=== PATIENT | female | born 2005 | race Caucasian/White ===

== ENCOUNTER 2025-04-03 21:49 | Emergency (ER) | payer OTHER, SELFPAY ==
--- OUTSIDE RECORDS SUMMARY | 2025-03-02 12:55 | XMS_ITS | Encounter Summary ---
Author Organization [employer] Address [address], [place] [address] Care Team Providers Care Melter Caster Name Role Phone Unavailable Primary Care Provider Unavailabl e Reason for Visit * Reason Comments EATING DISORDER Encounter Details Date Type Department Care Team (Latest Contact Info) Description 03/02/2025 12:55 PM CDT - 03/02/2025 11:59 PM CDT Hospital Encounter [facility] [address] [place] [address] [id number] Delisa Blandon, PhD, [address] [address] Other specified eating disorder (Primary Dx); Major depressive disorder, recurrent episode, moderate (HRC); NITESH (generalized anxiety disorder) (HRC) Discharge Disposition: Still a Patient Social History Tobacco Use Types Packs/Day Years Used Date Smoking Tobacco: Never Assessed Comments Unknown Sex and Gender Information Value Date Recorded Sex Assigned at Not on file Legal Sex Female 8:44 AM CDT Gender Identity Not on file Sexual Orientation Not on file documented as of this encounter Functional Status documented as of this encounter Progress Notes * Delisa Blandon, PhD, - 03/02/2025 1:00 PM CDT Images from the original note were not included. [facility] Standard Diagnostic Assessment Start Time: 1:00 p.m. End Time: 1:50 p.m. Patient was seen alone. This appointment was conducted via telehealth (video) as it is the patient???s preference and it isappropriate for the treatment being provided. Patient location: other [facility], Clinician location: clinic There are potential benefits and risks of telehealth (video or phone) visits that differ from in-person sessions. Confidentiality still applies for telehealth services. It is important to be in a quiet, private space that is free of distractions (including cell phone or other devices) during the session. In the future, if you need to cancel or change your tele-appointment, you must notify the clinic in advance by phone. In the event of technical problems or safety concerns, let's confirm your current location and the best number to reach you at. We should also agree on a safety plan and we will use the emergency contact on file if we get disconnected and I cannot reach you again. As your provider, I may determine that due to certain circumstances, telehealth no longer appropriate and thatfuture appointments should be in person. Data charges may apply if you are not connected to WiFi. I discussed with the patient/parent that this visit is a telehealth visit that will be billed to their insurance. Reviewed potential benefits, risks and confidentiality of telehealth visits. Confirmed patients' current location and contact information. Developed a safety plan to be used in the event of an emergency or safety concerns. Made contingency plan in the event of technical problems. Explained that the appropriateness of telehealth visits is determined by the provider and that patient may need to be seen in clinic in the future. The scope and limitations of confidentiality were discussed. Patient stated understanding. Assessment Data Date of Initial Assessment: 03-02-25 Initial Assessment Completed By: Delisa Blandon, PH.D., L.P. Location of Initial Assessment: [place] Referral Source: Primary Care Provider, real she saw for sports clearance. Dr. Cheatham from [facility] recommend eating disorder evaluation. Reason for Referral (direct quote from patient): I mentioned I haven't had my period in a while. Estimates having period a couple times a year. She reports really struggling last year with eating. She reports this was her first year at college. 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 She reports making herself throw up at that time. She described it has been a while since that has happened. She reports originally going to [employer] in [place]. Patient has a legal guardian: Subjective Family & Cultural History Patient was born in [place], [place] , raised by parents. She has twin sister who lives in [place]. . Parents are in process of divorce, she stated they are not happy. Current living situation: lives in dorm with two roommates. Described that is going well. She reports trouble sleeping. 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 Level of education: college. Is in biology. Employment (occupation and current work status): denied working. status: Gender Identity/Preferred Pronouns: Her/ She Information about race, ethnicity, gender identity, sexual orientation, national origin, and language includes . Bisexual. Yarsanism and cultural beliefs/practices: .denied. Strengths, hobbies, interests: skiing, likes to draw and paint and play music. History of Presenting Illness Presenting concerns as reported by patient: Duration of these concerns: Estimates struggling with eating for a year and 1/2 or two years. She took a gap year between senior year and college. She lived in a different part of [place] at this time . She was training for skiing and working. She reports being obsessive about training schedule at this time. She described she felt terrible if she missed workouts She reports overdoing it and being really tired. She reports last year she started to limit food intake. She estimated training 8 to 15 hours a week. She reports last year trying to get away with two meals a day. She described skipping lunch or only having saladat this time.. She reports being aware of calories and adding them up and would try to eat lower calorie foods. She reports being worried about gaining weight in college environment and was obsessed with burning more than then she ate. She would eat less if not working out. Estimated weighing around 160 at this time. She described typical day of eating as follows: For breakfast having yogurt bowl and granola. At lunch, having salad with protein or yogurt bowl and soup. For dinner having salad and something else. Was vague about this. May snack on fruits including apples or oranges , bars, crackers. Current Eating Disorder Symptoms Restricting: Food rules: Yes, feels guilty if she eats sugar. Skip meals: Yes, occasionally Eat less overall: Yes, Fasting: Yes, occasionally Count calories: Yes, she is still aware of calories, but not adding it up. Hide, throw away, smear, pick at: Yes, will prefer to eat on her own. Chewing/spitting: No Methodist-driven eating: No Vegan/vegetarian: No, did following vegetarian in the past. Described being squimish around meat. Diets/programs: no Patient reported the following: - - Binge Eating: occasionally.She did report eating uncomfortably full with fruit. This could be a couple apples, cookies in one sitting. She did not indicate frequency. Loss of Control: Yes, Objective Binge Eating: Yes, Subjective Binge Eating: should be further ruled out. Associated Binge Eating Characteristics: eating until uncomfortably full and guilt, shame, or disgust with self after the episode Patient reported the following: - Compensatory Behaviors: Self-Induced Vomitin to 3 X a week in past. Family stress was a trigger at this time. She reports not purging since arriving at school 3 weeks ago. States motivator to eat is to feel good at skiing practice. Diet Pills: No Laxatives: No Diuretics: No Patient reported the following: - - - Exercise: Current activity level: She reports training 6 days a week. She doesn't do extra beyond this. She may modify eating if not feeling she worked out enough. Estimates this occurring 25% of times she eats . Compulsive/compensatory exercise: No Patient reported the following: - ED Cognitions: Spend time outside of meals thinking about food/eating/shape/weight: Yes, 50% of time. Will think about what she is going to eat in next meal.or frustrated with herself based on what she ate. Is this bothersome or problematic (interfere with daily activities or concentration): No Is weight/shape important in influencing feelings about self as a person: Yes, Afraid of gaining weight or becoming fat: Yes, Patient reports the following: - ARFID Behaviors: Eating or feeding disturbance: No - Lack of interest in eating food: Not assessed at this time. - Avoidance bc of sensory concerns: No - Concern about aversive consequences: Yes, afraid of eating undercooked eggs and meat. - Fear of choking/vomiting: No - Patient reports the following: - Persistent Failure to meet appropriate nutritional/energy needs: Yes, - Significant weight loss, faltering growth, or lack of weight gain: uncertain. - Nutritional deficiency: No - Dependence on enteral feeding: No - Marked interference with psychosocial functioning: Yes, Impairment In what ways do these symptoms currently affect your daily life? Unhappy with myself all of the time. History of depression and anxiety, but this is contributing to it. Weight and Menstrual History Self-weighing: denied . Recent weight history: estimates last weight was 163 lbs. Highest - at age Lowest - at age of BMI Readings from Last 1 Encounters: No data found for BMI Menstrual status: history of reduced periods without being on control . History of control . Date of first period: Currently occurring monthly: If not monthly, how often? Currently on hormonal contraception? Mental Health Treatment History Eating disorder treatment: denied. Patient has received the following mental health services: She described gymnastics coach last year tried to help me get services at [facility]. Spoke with [facility] were also followed on by health center.. History of seeing a psychiatrist for many years. Since middle school . Was on lexapro for several years. Most recent med was Trintellix. Denied currently being on meds. History of psychiatric hospitalization: denied. Psychiatric History History of psychiatric diagnoses: NITESH with Depression History of self-injurious behaviors: history of cutting in middle school and early high school. Denied currently. History of safety concerns (SI, SA, etc.): denied. Mood: Pt reports the following concerns: struggles with picturing future and things she is hopeful for and hard time enjoying. May miss class, stay in bed, tearfulness. Depression: acknowledged history of. She did not complete PHQ-9 for intake. Imelda: Denied symptoms Anxiety: Pt reports the following concerns: Anxiety: excessive worrying, problems concentrating. She reported worrying about what other people think of her. She reports parents are .States school is more acaemically rigourous. Worries she is not cut out for academic. Panic: history of . OCD: Denied symptoms Perfectionism: Yes, ADHD, ODD, CD, Impulse Control: ADHD: hasn't been diagnosed Thought process was slow, Is really exhausted. ODD: Denied symptoms Conduct D/O: Denied symptoms Impulse control: Denied symptoms Psychosis: No Trauma: The patient does not have a history of trauma/traumatic experience. The patient does not have a history of physical abuse. The patient does not have a history of sexual abuse. The patient does not have a history of neglect. The patient does not have a history of exploitation or victimization. The patient does not have a current/history of bereavement. PTSD: Denied Symptoms Substance Use: Patient consumes alcoholic drinks per week: denied, CAGE-AID Score: Patient has or is currently using the following substances: dneied. Patient has needed help or tried to quit use of substances: Patient has experienced the following problems because of alcohol or drug use: Outcome Measures No data to display Legal History Patient involvement with the legal system: denied. Social Determinants of Health Important (current) relationships to the patient: far from home. Has some good friends in other parts of country. Sister is across town at [employer]. Quality of these relationships: General life stressors/concerns: Barriers to care: Yes, distance for in person appts. Basic Needs Met: Living Situation Stable: Medical/Physical Health History Primary Care Provider: No primary care provider on file. Patient has had a head injury or seizure: denied. Patient reports the following medical concerns: denied. Special accommodations for in-person visits: Medication History Current/past Psychotropic medications: hx of . Current/past GLP-1 agonists, including semaglutides and tirzepatides (e.g., Ozempic, Wegovy, Zepbound, Mounjaro, Rybelsus, Trulicity, etc.): denied. Current other medications: Current Medications[1] Patient is compliant with taking medications as prescribed: uncertain. Family Psychiatric/Medical History Family members with eating disorder history: No Family members with mental health history: Yes, maternal family history of depression. Father depression and anxiety. Family History[2] Objective MENTAL STATUS EXAM Pt arrived on time. Appearance was casually dressed and appears stated age. Demeanor was pleasant. Participation was engaged in the interview process. Eye contact was good. Speech was increased latency of response and soft. Behavior and activity levels were within normal limits. Mood was dysthymic. Affect appeared consistent with with appropriate smiling. Thought processes were organized and focused on her symptoms and complaints. Thoughts and responses were slow throughout interview. Associations appeared intact and appeared fully oriented to time, place, and person. Insight appeared good . Judgment appeared fair. Impulse control appeared some evidence of impulse control problems, as suggested by binge eating. Intelligence level appeared to be average. Assessment/Plan Clinician Summary Laura is a 19 y.o. , female, who was referred to [facility] for this evaluation by Latia. Laura was seen with [facility]. Today???s interview, review of medical records, and supplemental information provided, support these diagnoses. Eating disorder symptom presentation includes: restriction, binge eating, excessive exercise. . These symptoms are currently impacting self-care/ADLs area(s) of functioning. Contributing medical issues and social determinants of health include medical and health problems cormorbid anxiety and depression.. Risk factors were assessed and no further action needed.Diagnostic impressions and treatment recommendations were discussed. Diagnoses OSFED Major Depressive Disorder, Recurrent, Moderate NITESH Rule-out diagnoses: ADHD The following referrals and recommendations were made: Outpatient Treatment (OP) Treatment options were discussed and the patient is willing to participate in ongoing treatment. Medical consult is recommended in addition to individual therapy and meetings with [facility]. Psychiatric consult was also recommended but patient was unwilling to schedule at this time. Recommended Treatment Modalities: CBT-E Goals of Treatment: Short-term Goals: Decrease eating disorder symptom use Long-term Goals: Increrase effective use of coping strategies Decrease eating diosrder thoughts [1] No current outpatient medications on file as of 03/02/2025. No current facility-administered medications on file as of 03/02/2025. [2] No family history on file. documented in this encounter Plan of Treatment Upcoming Encounters Date Type Department Care Team (Late st Contact Info) Description 04/09/2025 2:00 PM CDT Telemedicine [facility] [address] [place] [address] Augusta Ba, PEDIATRIC DERMATOLOGIST, HABILITATION TRAINING SPECIALIST [facility] [address] [place] [address] 04/10/2025 8:00 AM CDT Telemedicine [facility] [address] [place] [address] Marissa Salas RDN, LD [address] [address] 04/21/2025 8:00 AM GANG DRILL PRESS OPERATOR Telemedicine [facility] [address] [place] [address] Augusta Ba, PEDIATRIC DERMATOLOGIST, [facility] [address] [address] 04/23/2025 3:00 PM GANG DRILL PRESS OPERATOR Appointment [facility] [address] [place] [address] [address] [place] [address] Vinita Heredia MD [address] [facility] [address] [facility] [address] [place], [place] [id number] 04/30/2025 1:00 PM GANG DRILL PRESS OPERATOR Telemedicine [facility] [address] [place] [address] [address] [place], [place] [id number] Augusta Ba, LESLEE, [address] [id number] documented as of this encounter Visit Diagnoses Diagnosis Other specified eating disorder- Primary Major depressive disorder, recurrent episode, moderate (HRC) Major depressive disorder, recurrent episode, moderate NITESH (generalized anxiety disorder) (HRC) Generalized anxiety disorder documented in this encounter
--- OUTSIDE RECORDS SUMMARY | 2025-03-11 13:00 | XMS_ITS | Encounter Summary ---
Author Organization [email or web address] Address [address], [place] [address] Care Team Providers Care Residential Program Worker Name Role Phone Unavailable Primary Care Provider Unavailabl e Reason for Visit * Reason Comments EATING DISORDER Encounter Details Date Type Department Care Team (Late st Contact Info) Description 03/11/2025 1:00 PM CDT Office Visit [facility] 5 [facility], [address] [place] [address] Vinita Heredia MD [address] [facility] [address] [place] [address] Other specified eating disorder (Primary [...] from the original note were not included. [facility] Outpatient Medical Progress Note Date: 03/11/2025 [...] and purging. Laura is attending college at [employer] and does not have her own car. Medical follow up with [place] will be limited by this, does think [...] Info) Description 04/09/2025 2:00 PM CDT Telemedicine [facility] [address] [address] Augusta Ba, DIGITAL ACCOUNT SUPERVISOR, FOOD SAFETY COORDINATOR [address] [address] 04/10/2025 8:00 AM CDT Telemedicine [facility] [address] [address] Marissa Salas, MAGGI[place], LD [address] [address] 04/21/2025 8:00 AM MORGUE ATTENDANT Telemedicine [facility] [address] [address] Augusta Ba MSW, FOOD SAFETY COORDINATOR [address] [address] 04/23/2025 3:00 PM MORGUE ATTENDANT Appointment [facility] [address] [id number] Vinita Heredia MD [address] [facility] [address] [place], [place] [address] 04/30/2025 1:00 PM MORGUE ATTENDANT Telemedicine [facility] [address] [facility], [address] [place] [address] Augusta Ba, DIGITAL ACCOUNT SUPERVISOR, FOOD SAFETY COORDINATOR [address] [facility] [address] [place], [place] [phone] documented as of this encounter Visit Diagnoses Diagnosis Other specified eating disorder- Primary Major depressive disorder, recurrent episode, moderate (HRC) Major depressive disorder, recurrent episode, moderate NITESH (generalized anxiety disorder) (HRC) Generalized anxiety disorder Bradycardia Other specified cardiac dysrhythmias documented in this encounter
--- OUTSIDE RECORDS SUMMARY | 2025-03-31 14:00 | XMS_ITS | Encounter Summary ---
Author Organization [employer] Address [address] [address] Care Team Providers Care Pit Shoveler Name Role Phone Unavailable Primary Care Provider Unavailabl e Reason for Visit * Reason Comments EATING DISORDER Encounter Details Date Type Department Care Team (Late st Contact Info) Description 03/31/2025 2:00 PM CDT Telemedicine [facility] [address] [place] [address] Augusta Ba, LESLEE, CAFETERIA MONITOR [address] [place] [phone] Other specified eating disorder (Primary Dx); Major [...] Info) Description 04/09/2025 2:00 PM CDT Telemedicine [facility] [address] [place] [address] Augusta Ba MSW, CAFETERIA MONITOR [address] [place] [phone] 04/10/2025 8:00 AM CDT Telemedicine [facility] [address] [place] [address] Marissa Salas RDN, LD 2550 [facility] 216 [place] [address] 04/21/2025 8:00 AM PUMPER GAGER Telemedicine [facility] [address] [place] [address] Augusta Ba MSW, DIANA [address] [phone] 04/23/2025 3:00 PM PUMPER GAGER Appointment [facility] [address] [place] [address] Vinita Heredia MD 9600 [facility] [address] [place], [place] [address] 04/30/2025 1:00 PM PUMPER GAGER Telemedicine [facility] [address] [address] Augusta Ba MSW, DIANA [address] [place] [phone] documented as of this encounter Visit Diagnoses [...]
--- OUTSIDE RECORDS SUMMARY | 2025-04-02 14:40 | XMS_ITS | Encounter Summary ---
Author Organization [employer] Address [address], [place] [address] Care Team Providers Care Fusing Machine Tender Name Role Phone Unavailable Primary Care Provider Unavailabl e Reason for Visit * Reason Comments EATING DISORDER Encounter Details Date Type Department Care Team (Late st Contact Info) Description 04/02/2025 2:40 PM CDT Office Visit [facility] 5 [facility], [address] [place] [address] Vinita Heredia MD 96[address] [facility] [address] [place] [address] Other specified eating disorder (Primary [...] Info) Description 04/09/2025 2:00 PM CDT Telemedicine [facility] [address] [facility] [address] [place] [address] Augusta Ba, TRANS ROUTER, PROPOSAL DEVELOPMENT MANAGER [address] [place] [phone] 04/10/2025 8:00 AM CDT Telemedicine [facility] [address] [place], [place] [address] [address] Marissa Salas RDN, LD 2550 [facility] 216 [place] [address] 04/21/2025 8:00 AM SLP TEACHER Telemedicine [facility] [address] [address] Augusta Ba MSW, PROPOSAL DEVELOPMENT MANAGER [address] [place] [phone] 04/23/2025 3:00 PM SLP TEACHER Appointment [facility] [address] [place] [address] [address] [address] Vinita Heredia MD 9600 [facility] [address] [place], [place] [phone] 04/30/2025 1:00 PM SLP TEACHER Telemedicine [facility] [address] [place] [address] [address] [address] Augusta Ba MSW, PROPOSAL DEVELOPMENT MANAGER [address] [place] [phone] documented as of this encounter Visit Diagnoses Diagnosis Other specified eating disorder- Primary Major depressive disorder, recurrent episode, moderate (HRC) Major depressive disorder, recurrent episode, moderate NITESH (generalized anxiety disorder) (HRC) Generalized anxiety disorder Bradycardia Other specified cardiac dysrhythmias documented in this encounter
--- OUTSIDE RECORDS SUMMARY | 2025-04-03 21:51 | XMS_ITS | Encounter Summary ---
Author Organization [facility] Address [address] [place] [address] Care Team Providers Care Kettle Girl Name Role Phone Ofe Weathers PAC Unavailable [phone] Kendal Rogel PMHNP Unavailable [phone] Shyanne Weathersi A PAC Primary Care Provider [phone] Encounter Details Date Type Department Care Team (Late st Contact Info) Description 02/02/2025 Results Follow-Up [facility] Primary Care Family Medicine [address] [facility] [address] [place] [phone] Photovoltaic Testing Technician: Susana Cordero Tracy, APRN, BEACH ATTENDANT-C [address] [place] [phone] SICKLE CELL SCREEN Social History Tobacco Use Types Packs/Day Years Used Date Smoking Tobacco: Never Smokeless Tobacco: Never Comments:no smokers in the h ouse Alcohol Use Standard Drinks/Week Comments No 0 (1 standard drink = 0.6 oz pur e alcohol) PHQ-2 Answer Date Recorded Patient Health Questionnaire-2 Score 6 06/09/2024 Hunger Vital Sign Answer Date Recorded Within the past 12 months, y ou worried that your food would run out before you got the money to buy more. Never true 06/09/20 24 Within the past 12 months, t he food you bought just didn't last and you didn't have money to get more. Never true 06/09/2024 Safety and Environment Answer Date Satish rded Physical Abuse Worry Not on file 01/03/2021 Sexual Abuse Worry Not on file 01/03/2021 Guns In Home No 01/03/2021 Guns Unloaded or Locked Away Not on file Substance Use Types Use/Week Comments No Comments No Sex and Gender Information Value Date Recorded Sex Assigned at Not on file Legal Sex Female 6:43 AM EST Gender Identity Not on file Sexual Orientation Not on file documented as of this encounter Functional Status * Are you deaf or do you have serious difficulty hearing? Answer Date of Assessment Author Status No 02/16/2022 2:34 PM EDT JacquelineCaleb haganin L, RMA Active * Are you blind or do you have serious difficulty seeing, even when wearing glasses? Answer Date of Assessment Author Status No 02/16/2022 2:34 PM EDT JacquelineCaleb haganin L, RMA Active * Do you have serious difficulty walking or climbing stairs? (5 years old or older) Answer Date of Assessment Author Status No 02/16/2022 2:34 PM EDT Jacqueline Melissa L, RMA Active * Do you have difficulty dressing or bathing? (5 years old or older) Answer Date of Assessment Author Status No 02/16/2022 2:34 PM EDT Jacqueline Melissa L, RMA Active * Because of a physical, mental, or emotional condition, do you have difficulty doing errands alone such as visiting a doctor's office or shopping? (15 years old or older) Answer Date of Assessment Author Status No 02/16/2022 2:34 PM EDT Jacqueline Melissa L, RMA Active documented as of this encounter Mental Status * Because of a physical, mental, or emotional condition, do you have serious difficulty concentrating, remembering, or making decisions? (5 years old or older) Answer Entry Date Author Status No 02/16/2022 2:34 PM EDT Jacqueline Melissa L, RMA Active documented in this encounter Plan of Treatment Not on file documented as of this encounter Visit Diagnoses Not on filedocumented in this encounter Additional Health Concerns Assessment Noted Time PHQ-9 Depression Total Score: 20 024 10:04 AM EST documented as of this encounter Care Teams Kettle Girl Relationship Specialty Start Date End Date Ofe Weathers PAC [address] [place] [phone] PCP - General Physician Electrical Tester 03/10/21 Ofe Weathers PAC [address] [place] [phone] Physician Electrical Tester Physician Electrical Tester 09/17/18 Kendal Rogel, [facility] [address] [place] [id number] Consulting Service Psychiatry 10/29/18 documented as of this encounter
--- OUTSIDE RECORDS SUMMARY | 2025-04-03 21:51 | XMS_ITS | Encounter Summary ---
Author Organization [facility] Address [address], [place] [address] Care Team Providers Care Fire Fighting Equipment Specialist Name Role Phone Unavailable Primary Care Provider Unavailabl e Encounter Details Date Type Department Care Team (Late st Contact Info) Description 03/02/2025 Care Coord Documentation L[facility] [address] [place] [id number] Sonya Pereyra MA Social History Tobacco Use Types Packs/Day Years Used Date Smoking Tobacco: Never Assessed Comments Unknown Sex and Gender Information Value Date Recorded Sex Assigned at Not on file Legal Sex Female 8:44 AM CDT Gender Identity Not on file Sexual Orientation Not on file documented as of this encounter Functional Status documented as of this encounter Progress Notes * Sonya Pereyra MA - 03/02/2025 3:57 PM CDT [facility] Initial Assessment Summary Recommended Level of Care: Outpatient (OP) - [facility] and RD, Medical consultation. MDNafisaP recommended however patient would like to hold off on scheduling. *Please call to schedule. Diagnosis: OSFED Growth Charts: None Verbal Disclosure signed: No Outside Care Team: None provided at [place] Insurance Info Insurance Benefit Sheet reviewed for non-coverage form needs? Yes Medicare Insurance: No Secondary Insurance: No Medicare Replacement Insurance: No Secondary Insurance: No Flowsheets Completed: Yes Sonya Pereyra MA * Ashley Munoz - 03/02/2025 3:57 PM CDT Subjective: Patient ID: Lauramariza Corrales is a 19 y.o. female. Chief Complaint: [facility] Post Initial Assessment Outpatient Scheduling Scheduled Providers (Name and Frequency): Vinita Heredia MD 1 visit Augusta diez 1 visit Christiane marie 1 visit Care Team Updated in [facility] (Yes or No): Yes Post [place] Paperwork (Sent via [way info sent] or Need to be Mailed): please mail Review of Systems Objective: Physical Exam Assessment: No diagnosis found. Plan: NA documented in this encounter Plan of Treatment Upcoming Encounters Date Type Department Care Team (Late st Contact Info) Description 04/09/2025 2:00 PM CDT Telemedicine [facility] [address] [place] [address] Augusta Diez MSW, [address] [address] 04/10/2025 8:00 AM CDT Telemedicine [facility] [address] [place] [address] Marissa Salas RDN, LD [address] [facility] [address] [place] [address] 04/21/2025 8:00 AM CIVIL ENGINEERING TEACHER Telemedicine [facility] [address] [facility] [address] [place] [address] Augusta Diez MSW, [address] [address] 04/23/2025 3:00 PM CIVIL ENGINEERING TEACHER Appointment [facility] [address] [address] Vinita Heredia MD [address] [facility] [address] [place] [address] 04/30/2025 1:00 PM CIVIL ENGINEERING TEACHER Telemedicine [facility] [address] [place] [address] Augusta Diez, MAORI LIAISON ADVISER, [facility] [address] [facility] [address] [place], [place] [phone] documented as of this encounter Visit Diagnoses Not on filedocumented in this encounter
--- OUTSIDE RECORDS SUMMARY | 2025-04-03 21:51 | XMS_ITS | Encounter Summary ---
Author Organization [facility] Address [address] [place] [address] Care Team Providers Care Supervisor Fireworks Assembly Name Role Phone Jennie Magallanes DO Unavailable [phone] Michelle Yates DO Primary Care Provider [phone] Provider, Unknown Primary Care Provider Unavaila ble Laura Aparicio MD Primary Care Provider Unavail able Ofe Weathers PAC Unavailable [phone] Kendal Rogel PMHNP Unavailable [phone] Ofe Weathers A PAC Primary Care Provider [phone] Encounter Details Date Type Department Care Team (Late st Contact Info) Description 08/29/2011 Hospital Visit [facility] OUTPATIENT Deepali Randall DO [address] [place] [address] Jennie Magallanes DO [address] [place] [address] Social History Tobacco Use Types Packs/Day Years Used Date Smoking Tobacco: Never Assessed Comments Unknown Sex and Gender Information Value Date Recorded Sex Assigned at Not on file Legal Sex Female 6:43 AM EST Gender Identity Not on file Sexual Orientation Not on file documented as of this encounter Plan of Treatment Not on file documented as of this encounter Procedures Procedure Name Priority Date/Time Associated Diagnosis Comments XR CHEST 1 VW 08/29/2011 11:34 AM EDT documented in this encounter Results * XR CHEST 1 VW (08/29/2011 11:34 AM EDT) Anatomical Region Laterality Modality Chest Computed Radiogr aphy 08/29/2011 11:3 4 AM EDT Narrative 08/29/2011 3:38 PM EDT DATE: 08/29/2011 11:34 ORDERED EXAM: CHEST EXAM: CHEST 08/29/11 INDICATION: pH probe placement. FINDINGS: The lowest of the pH probe electrodes is 9cm above the GE junction. The cardiomediastinal contours are normal and the lungs appear clear. IMPRESSION: The pH probe is in a high position with the lowest of the electrodes 9cm above the GE junction. THIS IS AN ELECTRONICALLY VERIFIED REPORT 08/29/2011 5:29 PM: Everardo Prescott MD end of result us Unknown Provider IMG DIAGNOSTIC IMAGING ORDERABL ES Final Result documented in this encounter Visit Diagnoses Not on filedocumented in this encounter Care Teams Supervisor Fireworks Assembly Relationship Specialty Start Date End Date Jennie Magallanes DO [address] [place] [address] [address] [place] [address] PCP - Hospital (change to care team) 09/01/11 03/09/21 Michelle Yates DO [address] [place] [address] PCP - General 07/15/14 01/09/16 Provider, Unknown PCP - General 01/10/16 09/16/18 Laura Aparicio MD PCP - General Family Medicine 09/17/18 03/09/21 Ofe Weathers PAC [address] [place] [phone] PCP - General Physician Development Engineer 03/10/21 Ofe Weathers, CRUZ [address] [place] [phone] Physician Development Engineer Physician Development Engineer 09/17/18 Kendal Rogel, PMP [address] [place] [phone] Consulting Service Psychiatry 10/29/18 documented as of this encounter
--- OUTSIDE RECORDS SUMMARY | 2025-04-03 21:51 | XMS_ITS | Encounter Summary ---
Author Organization [facility] Address [address] [place], [place] [address] Care Team Providers Care Roof Bolter Operator Name Role Phone Ofe Weathers PAC Unavailable [phone] Kendal Rogel PMHNP Unavailable [phone] Ofe Weathers Primary Care Provider [phone] Encounter Details Date Type Department Care Team (Late st Contact Info) Description 12/22/2024 Results Follow-Up [facility] Primary Care Family Medicine [address] [facility] [address] [place] [address] Lozenge Maker Helper: Susana Cordero Calli A, PAC [address] [place] [address] TSH REFLEX THYROXINE FREE, FERRITIN, IRON + IRON BINDING CAPACITY Social History Tobacco Use Types Packs/Day Years [...] Author Status No 02/16/2022 2:34 PM EDT JacquelineMelissa hagan L, RMA Active * Are you blind or do you have serious difficulty seeing, even when wearing glasses? Answer Date of Assessment Author Status No 02/16/2022 2:34 PM EDT JacquelineCaleb haganin L, RMA Active * Do you have serious difficulty walking or climbing stairs? (5 years old or older) Answer Date of Assessment Author Status No 02/16/2022 2:34 PM EDT Caleb Phillipsin L, RMA Active * Do you have difficulty dressing or bathing? (5 years old or older) Answer Date of Assessment Author Status No 02/16/2022 2:34 PM EDT JacquelineCaleb haganin L, RMA Active * Because of a physical, mental, or emotional condition, do you have difficulty doing errands alone such as visiting a doctor's office or shopping? (15 years old or older) Answer Date of Assessment Author Status No 02/16/2022 2:34 PM EDT JacquelineCalebin L, RMA Active documented as of this encounter Mental Status * Because of a physical, mental, or emotional condition, do you have serious difficulty concentrating, remembering, or making decisions? (5 years old or older) Answer Entry Date Author Status No 02/16/2022 2:34 PM EDT JacquelineCaleb haganin Mickey, RMA Active documented in this encounter Plan of Treatment Not on file documented as of this encounter Visit Diagnoses Not on filedocumented in this encounter Additional Health Concerns Assessment Noted Time PHQ-9 Depression Total Score: 20 024 10:04 AM EST documented as of this encounter Care Teams Roof Bolter Operator Relationship Specialty Start Date End Date Ofe Weathers PAC [address] [place] [address] PCP - General Physician Pipeline Dispatch Operator 03/10/21 Ofe Weathers PAC [address] [place] [address] Physician Pipeline Dispatch Operator Physician Pipeline Dispatch Operator 09/17/18 Kendal Rogel, [facility] [address] [place] [phone] Consulting Service Psychiatry 10/29/18 documented as of this encounter
--- OUTSIDE RECORDS SUMMARY | 2025-04-03 21:51 | XMS_ITS | Clinical Summary ---
Author Organization [facility] Address [address] [place] [address] Care Team Providers Care Airport Duty Manager Name Role Phone Ofe Weathers PAC Unavailable [phone] Kendal Rogel PMHNP Unavailable [phone] Ofe Weathers PAC Primary Care Provider [phone] Allergies Active Allergy Reactions Criticality Noted Date Comments Amoxicillin 07/21/2010 hives Doxycycline 07/23/2014 Hand rash Medications * This document contains information received from the source organization and may not represent a complete record from that organization. Trintellix 20 MG Tab Take 20 mg by mouth daily. 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 I reached out to Viviane Matamoros but, unfortunately, she is about to retire. She also states it is difficult to find a local provider who can do televisits out of state. I will update Laura and ask her to look into her local resources and/or organizations that do telehealth & let me know if she needs a referral. Labs in April were reassuring in ruling out a metabolic factor. I ask her to continue to update us Chest pain, unspecified type 06/15/2024 Assessment & Plan (06/15/2024 9:34 AM EST): EKG, Interpreted by me, shows normal sinus rhythm with no significant findings Low serum vitamin B12 06/15/2024 Overview (06/15/2024): On lab 05/07/2024 Irregular menses 08/25/2021 Assessment & Plan (08/25/2021 4:28 PM EDT): Will stop the OCP's and switch to Depo for now. If this goes well, will consider referral for the implant. She would like to wait to have her first Depo until after her race this weekend, in case she has any bleeding. We will schedule her back in the lab to have this done. Menses painful 01/03/2021 Assessment & Plan (01/03/2021 1:03 PM EDT): She would like to start on OCPs, which is very reasonable. Mom was involved in the conversation and agreeable. We discussed the risks, benefits and directions on how to use. Will follow up in 3 months to see how this is going Low back pain 01/03/2021 Assessment & Plan (10/09/2022 4:22 PM EDT): Recently seen by physiatry, she felt the visit was very informative and helpful. She has not decided to proceed with any of the interventions at this time, which included injection therapy and possible subsequent rhizotomy. She does feel encouraged to know that there are some options for pain management should she wish to pursue this Assessment & Plan (02/19/2022 4:45 PM EDT): Plan for MRI and referral to Neuro Spine given no improvement with PT Assessment & Plan (08/25/2021 4:31 PM EDT): We talked about her back pain. If no significant improvement with the PT, next step would be to pursue an MRI. She will talk this over with her parents and decide if they would like to proceed with this Assessment & Plan (05/11/2021 1:44 PM EST): Will continue with PT for now. If pain is persistent at recheck in 8-12 weeks, would consider MRI at that point given that this has been going on for almost a year Assessment & Plan (01/03/2021 1:04 PM EDT): Is improving with physical therapy. Encouraged her to continue in her HEP Congenital leg length inequality, right 02/06/20 19 Assessment & Plan (02/19/2019 12:17 PM EDT): OMM performed on persistent somatic dysfunctions. Continue heel lift. Recheck in 4-6 weeks or after braces are removed if appointment times are close. Mother agrees. Assessment & Plan (02/05/2019 5:56 PM EDT): Advised implementing 3mm heel lift on the right. OMM was performed on resultant somatic dysfunctions. Will recheck in 2 weeks. Bruxism 02/05/2019 Assessment & Plan (01/03/2021 1:04 PM EDT): Has been noticeable recently with stress, however feels that she is managing it well Assessment & Plan (02/19/2019 12:21 PM EDT): Gave TMJ exercises to be performed daily. Upper trapezius trigger points may be contributing. Discussed potential for trigger point injections vs FDM. I anticipate this will improve once patient can start wearing mouth guard again. Assessment & Plan (02/05/2019 5:56 PM EDT): Discussed importance of stress relief. Ideally patient would be sleeping with mouth guard but cannot right now due to braces. May not need in the future once leg length is compensated for. Demonstrated lateral pterygoid release for patient to perform at home. Other secondary scoliosis, thoracolumbar region 02/05/2019 Assessment & Plan (02/19/2019 12:18 PM EDT): Improved. Leg length inequality is likely culprit. Assessment & Plan (02/05/2019 5:54 PM EDT): Likely secondary to leg length. Chronic nonintractable headache, unspecified hea dache type 01/03/2019 Assessment & Plan (01/03/2019 2:11 PM EDT): Will trial OMT, if appropriate. Encouraged mouth guard as soon as able Sleep difficulties 10/29/2018 Assessment & Plan (01/03/2021 1:02 PM EDT): Encouraged her to work on sleep hygiene-relaxing before bed, avoiding screen time prior to bed, keeping a regular bedtime, getting out of bed and doing something relaxing if not able to fall asleep within 15-30 minutes, trying to keep a regular wake-up time NITESH (generalized anxiety disorder) 06/24/2018 Assessment & Plan (06/15/2024 9:34 AM EST): Continues working with Kendal Rogel Assessment & Plan (01/03/2021 1:03 PM EDT): Has been stable. Continues to see counseling biweekly and Kendal Rogel every several months. Encouraged her to discuss recent stress and anxiety surrounding her injuries with her counselor Assessment & Plan (09/17/2018 9:57 PM EDT): Discussed that she could potentially increase her Lexapro to 20 mg daily, but would prefer that she discuss this with Kendal first. She is encouraged to call sooner than her scheduled appointment if her anxiety and mood do not improved with improved sleep Depression 06/24/2018 Assessment & Plan (11/05/2023 9:05 PM EDT): Has struggled some with mental health over the past year Has made a lot of medication changes and hasn't necessarily found them to be more effective than the Lexapro. Plan to call her manager product and discuss going back on Lexapro. Encouraged her to discuss augmenting the Lexapro with a small dose of an antipsychotic. She agrees and will call her to arrange an appointment to discuss Assessment & Plan (10/09/2022 4:22 PM EDT): Mood overall is okay. Did discuss that perhaps she may want to try a different approach to counseling. I feel that she may be a good candidate for acceptance therapy. She is in and discuss this more with her current counselor and will let me know if she would like a new referral. I also think that getting out of her home next year will be very helpful for her as well. I will leave follow-up open-ended, as she may not be in town when her physical is due next year, however she is encouraged to call and schedule something when she knows she will be home Assessment & Plan (02/19/2022 4:48 PM EDT): Still seeing Kendal and counseling, not sure if it is really helpful. Mood hasn't been great, feels like she is overwhelmed with school and sports. Would like to stop Cross Country, is not enjoying it, feels that it hurts her back and she doesn't have time for it. Encouraged her to have another conversation with her mom about this Assessment & Plan (01/03/2021 1:03 PM EDT): Stable. See above Assessment & Plan (09/17/2018 9:57 PM EDT): Will work on improving sleep. She will discuss med changes with Kendal if appropriate GERD (gastroesophageal reflux disease) 2 Assessment & Plan (07/06/2020 4:21 PM EST): Will start cimetidine as needed to control reflux symptoms Resolved Problems Problem Noted Date Diagnosed Date Resolved Date Tick bite of other part of jennifer ashley, initial encounter 11/05/2023 06/15/2024 Assessment & Plan (11/05/2023 9:03 PM EDT): Has completed prophylactic dose of doxy. At this time, it does not appear to be infected. Advised her to monitor closely, if expanding erythema, swelling, etc should let me know. Monitor for s/s of lyme and other tickborne illnesses for the next 30 days Encouraged daily tick checks Tick bite of abdomen, initial encounter 04/05/2022 10/09/2022 Assessment & Plan (04/05/2022 9:27 PM EDT): Prophylactic doxycycline prescribed. She is still advised to monitor for s/s of tick-borne illness for the next 30 days and for cellulitis in the next several days. Fatigue, unspecified type 08/25/2021 Assessment & Plan (08/25/2021 4:29 PM EDT): Will recheck labs today. I have encouraged her to make an appointment with Kendal to talk about her mood and medications. Encounter for surveillance o f contraceptive pills 05/11/2021 06/15/2024 Assessment & Plan (10/09/2022 4:21 PM EDT): She is doing very well on this control, wishes to continue. Did discuss that she may use some NSAIDs during menstruation, which may help with the nausea that she experiences Assessment & Plan (07/16/2022 9:57 AM EST): Will switch to OCP's. She is familiar with risks, benefits and side-effects. She will call with any concerns. Assessment & Plan (02/19/2022 4:47 PM EDT): She would like to try one more depo injection. If bleeding continues, recommend follow-up with METALLIC YARN SLITTING MACHINE OPERATOR to discuss options. Assessment & Plan (05/11/2021 1:43 PM EST): Referral to [facility] to discuss possible Nexplanon or depo use to avoid menses. Will also ask them to evaluate issues with painful tampon insertion Hair loss 05/11/2021 06/15/2024 Assessment & Plan (05/11/2021 1:44 PM EST): Will check a TSH Right lower quadrant abdominal pain 07/06/2020 01/03/2021 Assessment & Plan (07/06/2020 4:21 PM EST): We will check labs. If WBC is elevated would consider ultrasound to further evaluate for appendicitis. I encouraged her in hydration, a bland healthy diet and ask her to call if new or worsening symptoms, questions or concerns. Right flank pain 07/06/2020 01/03/2021 Assessment & Plan (07/06/2020 4:20 PM EST): Urine today is clear. Flank pain persists we will proceed with an ultrasound to further evaluate the kidney. Sore throat 06/30/2019 07/06/2020 Assessment & Plan (06/30/2019 12:50 PM EST): Recommend salt water gargles. Warm tea, honey. Tylenol/ibuprofen as needed. If worse, not resolving, recommend scheduling follow-up Low back pain 02/05/2019 05/11/2021 Assessment & Plan (02/05/2019 5:55 PM EDT): Secondary to leg length and resultant scoliosis. Medial tibial stress syndrom e, unspecified laterality, initial encounter 01/03/2019 07/06/2020 Assessment & Plan (01/03/2019 2:11 PM EDT): Referral to PT Insomnia 06/24/2018 10/29/2018 Assessment & Plan (09/17/2018 9:56 PM EDT): Discussed sleep hygiene today, handouts provided regarding this. Also encouraged her to start journalling her thoughts prior to bedtime to see if this is helpful Gastritis 06/24/2018 06/15/2024 Abdominal pain, epigastric 07/28/2010 0 07/06/2020 Encounters Date Type Department Care Team Description 02/02/2025 Results Follow-Up [facility] Family Medicine [address] [phone] Cargo Checker: Susana Cordero Tracy, APRN, SLIDER ASSEMBLER-C SICKLE CELL SCREEN 01/30/2025 Travel from Last 3 Months Immunizations Immunization Administration Dates Next Due DTaP Vaccine 05/28/2008, 5,2004,08/09,2004 HPV Vaccine 9-valent Confidential 12/17/2017,05/2016 Hepatitis A Vaccine 0.5 ml 06/27/2010,12/01/2008 Hepatitis B Vaccine 2004,2004,2003 HiB Vaccine 07/18/2005,2004,2004 Influenza Vaccine 05/03/2021,,04/01/2018,04/02 Influenza Vaccine Quadrivale nt 0.5mL IM PF Age 6M+ ([id number]) 06/07/2022,07/23/2019,04/01/2018 MMR Vaccine 05/28/2018,04/12/2005 Meningococcal MCV4P Vaccine 01/03/2021 Meningococcal MPSV4 Vaccine 12/21/2015 Listiki Purple Cap(12+) Covid-19,mrna,lnp-s,pf,0.3ml ([id number]) 06/10/2021,10/21/2020,09/28/2020 Poliovirus Vaccine Inactivated (IPV) ,2004,2004,06/22 Tdap Vaccine (7y+) 0.5 mL IM (Adacel, Boostrix)TDAP VACCINE AGE 7+ 12/21/2015 Varicella Vaccine 12/01/2008,09/09/2007 Family History Medical History Relation Name Comments Diabetes Maternal Grandfather Celiac Disease Neg Hx Crohn Disease Neg Hx ADY Neg Hx Relation Name Status Comments Father Alive Maternal Grandfather Alive Mother Alive Sister Alive Social History Tobacco Use Types Packs/Day Years Used Date Smoking Tobacco: Never Smokeless Tobacco: Never Tobacco Cessation:Counseling Given: Not Answered Comments:no smokers in the house Alcohol Use Standard Drinks/Week Comments No 0 [...] on file Sexual Orientation Not on file Last Filed Vital Signs Vital Sign Reading Time Taken Comments Blood Pressure 120/70 06/09/2024 10:07 AM EST Pulse 80 11/01/2023 1:02 PM EDT Temperature 36.6 C (97.9 F) 11/01/2023 1:02 PM EDT Respiratory Rate 16 07/23/2014 10:05 AM EST Oxygen Saturation 100% 05/18/2022 3:40 PM EST Inhaled Oxygen Concentration 100% 05/18/2022 3 :40 PM EST Weight 74.1 kg (163 lb 7 oz) 06/09/2024 10:07 AM EST Height 182.2 cm (5' 11.75) 06/09/2024 10:07 AM EST Body Mass Index 22.32 06/09/2024 10:07 AM EST Plan of Treatment Health Maintenance Due Date Last Done Comments HIV Screening with Documented Verbal Consent 2019 Chlamydia Screening 01/03/2022 01/03/2021, 9 Hepatitis C Screening 2022 Well Child Visit Annual 02/16/2023 02/17/20 22, 01/03/2021, 01/02/2019 COVID-19 Vaccine ( season) 2025 06/10/2021, 10/21/2020, 09/28/2020 Influenza Vaccine (#1) 2025 , 05/03/2021, 04/14/2020, Additional history exists Depression Screening 06/09/2025 06/09/2024, 02/16/2022, 01/03/2021, Additional history exists Fall Risk Assessment 06/09/2025 06/09/2024, 05/18/20 DTaP/Tdap/Td Vaccine (7 - Td or Tdap) 12/20/2025 12/21/2015, 05/28/2008, 05/28/2008, Additional history exists TDAP/TD Vaccine 18+ 12/20/2025 12/21/2015 Pediatric Cardiac Risk Screening 06/09/2027 06/09/2024 Hepatitis B Vaccines Completed 2004, 2004, 2004, Additional history exists IPV Vaccines Completed 05/28/2008, 08/2004, 2004, Additional history exists Varicella Vaccines Completed 12/01/2008, 09/09/2007 Hepatitis A Vaccines Completed 06/27/2010, 06/27/2010, 12/01/2008, Additional history exists HPV Vaccines Completed 12/17/2017, 12/21/2015 MMR Vaccines Completed 05/28/2018, 05/11, 04/12/2005 Fluoride Varnish Discontinued 10/03/2018 Meningococcal ACWY Vaccine Completed 01/03/2021, Pneumococcal: Peds (0-5y) OR At-Risk Patient (6-49y) Aged Out No longer asim gible based on patient's age to complete this topic Rotavirus Vaccines Aged Out No longer eligible based on patient's age to complete this topic Procedures Procedure Name Priority Date/Time Associated Diagnosis Comments SICKLE CELL SCREEN Routine 01/30/2025 5: 37 PM EDT Encounter for sickle-cell screening from Last 3 Months Results * SICKLE CELL SCREEN (01/30/2025 5:37 PM EDT) Sickle Cell Screen NEGATIVE 01/31/2025 5:[address] [facility] Comment: False negatives may be seen in anemia, infants and following red cell transfusions. Blood VENOUS STRUCTURE / Unknown Venipuncture / Unknown 01/30/2025 5:37 PM EDT 01/30/2025 5:40 PM EDT us Denisha Abdi CAUSTIC STRENGTH INSPECTOR, SLIDER ASSEMBLER-C BLOOD BANK ORDERABLES F inal Result [facility] B[facility] [address] [place] [address] from Last 3 Months Insurance [employer] Care Teams Airport Duty Manager Relationship Specialty Start Date End Date Ofe Weathers, PAC [address] [place] [phone] PCP - General Physician Surveillance Systems Analyst 03/10/21 Ofe Weathers, PAC [address] [place] [phone] Physician Surveillance Systems Analyst Physician Surveillance Systems Analyst 09/17/18 Kendal Rogel, PMHNP [address] [place] [address] [phone] Consulting Service Psychiatry 10/29/18
--- OUTSIDE RECORDS SUMMARY | 2025-04-03 21:51 | XMS_ITS | Encounter Summary ---
Author Organization [facility] Address [address] [place] [address] Care Team Providers Care Cisco Certified Internetwork Expert Name Role Phone Ofe Weathers PAC Unavailable [phone] Kendal Rogel PMHNP Unavailable [phone] Ofe Weathers PAC Primary Care Provider [phone] Encounter Details Date Type Department Care Team (Late st Contact Info) Description 05/06/2024 Orders Only [facility] [address] [place] [id number] Kendal Rogel, PMHNP [address] [place] [address] Social History Tobacco Use Types Packs/Day Years Used Date Smoking Tobacco: Never Smokeless Tobacco: Never Comments:no smokers in the h ouse Alcohol Use Standard Drinks/Week Comments No 0 (1 standard drink = 0.6 oz pur e alcohol) PHQ-2 Answer Date Recorded PHQ-A Severity Score - follow up recommended for a score of 10+ 11 02/16/2022 Hunger Vital Sign Answer Date Recorded Within the past 12 months, y ou worried that your food would run out before you got the money to buy more. Never true 02/17/20 22 Within the past 12 months, t he food you bought just didn't last and you didn't have money to get more. Never true 02/16/2022 Safety and Environment Answer Date Satish rded [...] Status No 02/16/2022 2:34 PM EDT JacquelineMelissa haagn L, RMA Active * Are you blind or do you have serious difficulty seeing, even when wearing glasses? Answer Date of Assessment Author Status No 02/16/2022 2:34 PM EDT JacquelineMelissa hagan L, RMA Active * Do you have [...] on file documented as of this encounter Results * COMPREHENSIVE METABOLIC PANEL (05/07/2024 12:57 PM EST) Sodium 142 135 - 145 mEq/L 05/08/2024 12:58 PM [facility] Potassium 4.5 3.5 - 5.1 mEq/L 05/08/2024 12:58 PM [facility] Chloride 105 96 - 108 mEq/L 05/08/2024 12:58 PM [facility] Carbon Dioxide 24 21 - 30 mEq/L 05/08/2024 12:58 PM [facility] Anion Gap 13 7 - 16 mEq/L 05/08/2024 12:58 PM [facility] Blood Urea Nitrogen 18 6 - 20 mg/dL 05/08/2024 12:58 PM [facility] Creatinine 0.98 0.59 - 1.04 mg/dL 05/08/2024 12:58 PM [facility] BUN Creatinine Ratio 18.4 05/08/2024 12:58 PM [facility] Glucose 74 70 - 99 mg/dL 05/08/2024 12:58 PM [facility] Comment:Per ADA guidelines t hese ranges are for fasting glucose only Protein 7.4 6.4 - 8.3 g/dL 05/08/2024 12:58 PM [facility] Albumin 4.9 3.5 - 5.1 g/dL 05/08/2024 12:58 PM [facility] Globulin 2.5 2.0 - 3.5 g/dL 05/08/2024 12:58 PM [facility] Albumin/Globulin Ratio 2.0 05/08/2024 12:58 PM [facility] Bilirubin 0.3 <=1.2 mg/dL 05/08/2024 12:58 PM [facility] Calcium 9.9 8.6 - 10.0 mg/dL 05/08/2024 12:58 PM [facility] Alkaline Phosphatase 94 35 - 104 U/L 05/08/2024 12:58 PM [facility] AST 22 8 - 43 U/L 05/08/2024 12:58 PM [facility] ALT 14 7 - 45 U/L 05/08/2024 12:58 PM [facility] EGFR (MDRD) >60 >60.0 mL/min/1.7 3m(2) 05/08/2024 12:58 PM EST [facility] Comment:This test has multip le limitations. Please see [email or web address]. Blood VENOUS STRUCTURE / Unknown Venipuncture / Unknown 05/07/2024 12:57 PM EST 05/07/2024 12:59 PM EST Kendal Rogel PMHNP CHEMISTRY ORDERABLES Kylie l Result Performing Organization Address City/[facility]/ZIP Co de Phone Number [facility] [address] [place] [address] * TSH REFLEX THYROXINE FREE (05/07/2024 12:57 PM EST) TSH 0.851 0.270 - 4.200 uIU/mL 05/08/2024 12:58 PM [facility] Blood VENOUS STRUCTURE / Unknown Venipuncture / Unknown 05/07/2024 12:57 PM EST 05/07/2024 12:59 PM EST Kendal Rogel PMHNP CHEMISTRY ORDERABLES Kylie l Result Performing Organization Address City/[facility]/ZIP Co de Phone Number [facility] [address] [place], [place] [id number] * (ABNORMAL) LIPID PANEL (05/07/2024 12:57 PM EST) Cholesterol 188 See comment mg/dL 05/08/2024 12:58 PM [facility] Comment: Fasting and Non-Fasting Desirable: <200 mg/dL Borderline high: 200-239 mg/dL High: > or = 240 mg/dL Triglycerides 104 See comment mg/dL 05/08/2024 12:58 PM [facility] Comment: Flagging of Abnormals is based on fasting value Fasting Normal: <150 mg/dL Borderline high: 150-199 mg/dL High: 200-499 mg/dL Very high: > or = 500 mg/dL Non-Fasting Males: <200 mg/dL Females: <175 mg/dL HDL Cholesterol 55 See comment mg/dL 05/08/2024 12:58 PM [facility] Comment: Fasting and Non-Fasting Males: > or = 40 mg/dL Females: > or = 50 mg/dL LDL Cholesterol Calculation 112(H) 0 - 99 mg/dL 05/08/2024 12:58 PM [facility] Non HDL Cholesterol Calculation 133.0(H) See comment mg/dL 05/08/2024 12:58 PM [facility] Comment: Fasting and Non-Fasting Desirable: <130 mg/dL Above desirable: 130-159 mg/dL Borderline high: 160-189 mg/dL High: 190-219 mg/dL Very high: > or = 220 mg/dL Blood VENOUS STRUCTURE / Unknown Venipuncture / Unknown 05/07/2024 12:57 PM EST 05/07/2024 12:59 PM EST [facility] - 05/08/2024 12:58 PM EST The National Lipid Association and the National Cholesterol Education Program (NCEP) have set the above guidelines for lipids (total cholesterol, triglycerides, HDL cholesterol, LDL cholesterol, and non HDL cholesterol) in adults ages 18 and up. us Kendal Rogel PMHNP CHEMISTRY ORDERABLES Kylie zuñiga Result [facility] [address] [place] [address] * VITAMIN D 25-HYDROXY TOTAL (DEFICIENCY SCREENING ASSAY) (05/07/2024 12:57 PM EST) Vitamin D 25-Hydroxy 31.5 25.0 - 50.0 ng/mL 05/08/2024 12:34 PM [facility] Comment: <13 ng/mL (deficient) 13-24 ng/mL (inadequate) 25-50 ng/mL (sufficient) >50 ng/mL (possibly harmful level - this is a suggested range according to the IOM/CDC 2011 guidelines, please interpret within the clinical context) Blood VENOUS STRUCTURE / Unknown Venipuncture / Unknown 05/07/2024 12:57 PM EST 05/07/2024 12:59 PM EST Kendal Rogel PMHNP CHEMISTRY ORDERABLES Kylie l Result Performing Organization Address City/[facility]/ZIP Co de Phone Number [place] [id number] [place] [address] * (ABNORMAL) VITAMIN B12 + FOLATE LEVELS (05/07/2024 12:57 PM EST) Vitamin B12 Level 214(L) 232 - 1,245 pg/mL 05/08/2024 12:34 PM EST [facility] Folate Level 9.2 4.8 - 20.0 ng/mL 05/08/2024 12:34 PM EST [facility] Blood VENOUS STRUCTURE / Unknown Venipuncture / Unknown 05/07/2024 12:57 PM EST 05/07/2024 12:59 PM EST Result [facility] Kendal Rogel PMHNP CHEMISTRY ORDERABLES Kylie l Result Performing Organization Address City[facility]/ZIP Co de Phone Number [place] [address] [place] [address] * MAGNESIUM (05/07/2024 12:57 PM EST) Pathologist [facility] Magnesium 2.5 1.6 - 2.6 mg/dL 05/08/2024 12:58 PM EST [facility] Blood VENOUS STRUCTURE / Unknown Venipuncture / Unknown 05/07/2024 12:57 PM EST 05/07/2024 12:59 PM EST Kendal Rogel PMHNP CHEMISTRY ORDERABLES Kylie l Result Performing Organization Address City[facility]/ZIP Co de Phone Number [place] [address] [place] [address] * FERRITIN (05/07/2024 12:57 PM EST) Ferritin 92.3 13.0 - 150.0 ng/mL 05/08/2024 12:34 PM EST [facility] Blood VENOUS STRUCTURE / Unknown Venipuncture / Unknown 05/07/2024 12:57 PM EST 05/07/2024 12:59 PM EST Kendal Rogel PMHNP CHEMISTRY ORDERABLES Kylie l Result Performing Organization Address City[facility]/ZIP Co de Phone Number [facility] [address] [place] [address] * HEMOGLOBIN A1C (05/07/2024 12:56 PM EST) Hemoglobin A1C 5.3 4.2 - 5.6 % 05/08/2024 4:47 AM EST [facility] Average Plasma Glucose 105 82 - 117 mg/dL 05/08/2024 4:47 AM EST [facility] Blood VENOUS STRUCTURE / Unknown Venipuncture / Unknown 05/07/2024 12:56 PM EST 05/07/2024 12:59 PM EST Narrative [facility] - 05/08/2024 4:47 AM EST <18 years: Hemoglobin A1c criteria for diagnosing diabetes have not been established for patients who are <18 years of age. > or =18 years: Increased risk for diabetes (prediabetes): 5.7-6.4% Diabetes: > or =6.5% Falsely low percent A1c may be seen with abnormal hemoglobin variants or shortened erythrocyte survival (such as hemolysis, blood loss and ). Kendal Rogel PMHNP CHEMISTRY ORDERABLES Kylie l Result Performing Organization Address City[facility]/ZIP Co de Phone Number [facility] [address] [place] [address] * VITAMIN B2 LEVEL (05/07/2024 12:56 PM EST) Vitamin B2 Level 8.4 6.2 - 39.0 nmol/L 05/18/2024 7:36 PM EST [facility] Comment: Vitamin supplementation within 24 hours prior to blood draw may affect the accuracy of results. This test was developed and its analytical performance characteristics have been determined by [facility] [place], [place]. It has not been cleared or approved by the FDA. This assay has been validated pursuant to the CLIA regulations and is used for clinical purposes. Test Performed at: [facility] [address] [facility] [place] [address] Dale Lopez MD, PhD Blood VENOUS STRUCTURE / Unknown Venipuncture / Unknown 05/07/2024 12:56 PM EST 05/07/2024 12:59 PM EST us Kendal Rogel PMHNP CHEMISTRY ORDERABLES Kylie l Result [facility] [address] * PHOSPHORUS (05/07/2024 12:56 PM EST) [facility] Phosphorus 3.0 2.5 - 4.5 mg/dL 05/08/2024 11:50 AM EST [facility] Blood VENOUS STRUCTURE / Unknown Venipuncture / Unknown 05/07/2024 12:56 PM EST 05/07/2024 12:59 PM EST us Kendal Rogel PMHNP CHEMISTRY ORDERABLES Kylie l Result Performing Organization Address City[facility]/ZIP Co de Phone Number [facility] [address] [place] [address] documented in this encounter Visit Diagnoses Diagnosis Anorexia nervosa, binge eating/purging type- Primary Anorexia nervosa documented in this encounter Additional Health Concerns Assessment Noted Time A fall risk assessment has been complete d for the patient 05/18/2022 3:41 PM EST documented as of this encounter Care Teams [employer] Certified Internetwork Expert Relationship Specialty Start Date End Date Ofe Weathers PAC [address] [place] [phone] PCP - General Physician Building Construction Estimator 03/10/21 Ofe Weathers PAC [address] [place] [phone] Physician Building Construction Estimator Physician Building Construction Estimator 09/17/18 Kendal Rogel, PMHNP [address] [place] [address] Consulting Service Psychiatry 10/29/18 documented as of this encounter
--- OUTSIDE RECORDS SUMMARY | 2025-04-03 21:51 | XMS_ITS | Clinical Summary ---
Author Organization [facility] Address [address] [place] [address] Care Team Providers Care Athletic Coach Name Role Phone Liz Puri MD Primary Care Provider Allergies Active Allergy Reactions Criticality Noted Date Comments Amoxicillin Hives,Arthralgia 06/11/2009 Doxycycline Hives 02/16/2025 Medications No known medications Active Problems Problem Noted Date Diagnosed Date Bulimia nervosa 02/16/2025 Personal history of nonsuicidal self-harm 2024 Encounters Date Type Department Care Team Description 03/10/2025 2:15 PM CDT Orders Only [facility] [address] [place] [address] Lab, [facility] 03/10/2025 Travel 02/16/2025 7:25 AM CDT Office Visit [facility] [address] [place] [address] Liz Puri MD Sports Physical; Allergies (Amoxicillin ) 02/16/2025 Travel from Last 3 Months Social History Tobacco Use Types Packs/Day Years Used Date Smoking Tobacco: Never Smokeless Tobacco: Never Tobacco Cessation:Counseling Given: Not Answered Social Connections Answer Date Recorded Do you often feel lonely or isolated from those around you? 0 02/16/2025 Alcohol Use Answer Date Recorded How often do you have a drink containing alcohol ? 0 02/16/2025 Average Number of Drinks Not on file 025 Frequency of Binge Drinking Not on file 01/2025 Financial Resource Strain Answer Date R ecorded Difficulty of Paying Living Expenses 3 02/16/2025 Difficulty of Paying Living Expenses Not on file 02/16/2025 Food Insecurity Answer Date Recorded Do you worry your food will run out before you are able to buy more? 1 02/16/2025 Transportation Needs Answer Date Record ed Does lack of transportation keep you from medica l appointments? 1 02/16/2025 Does lack of transportation keep you from work, meetings or getting things that you need? 1 02/16/2025 Housing Stability Answer Date Recorded What is your housing situation today? 1 02/16/2025 Utilities Answer Date Recorded Do you have trouble paying f or utilities (for example, heat, electricity, water, phone)? 1 02/16/2025 Comments No Sex and Gender Information Value Date Recorded Sex Assigned at Not on file Legal Sex Female 9:46 AM CDT Gender Identity Not on file Sexual Orientation Not on file Obstetrics History Last Filed Vital Signs Vital Sign Reading Time Taken Comments Blood Pressure 102/68 02/16/2025 7:43 AM CDT Pulse 65 02/16/2025 7:43 AM CDT Temperature 36.5 C (97.7 F) 02/16/2025 7:43 AM CDT Respiratory Rate - - Oxygen Saturation 100% 02/16/2025 7:43 AM CDT Inhaled Oxygen Concentration - - Weight 75.5 kg (166 lb 8 oz) 02/16/2025 7:43 AM CDT Height 182.9 cm (6') 02/16/2025 7:43 AM CDT Body Mass Index 22.58 02/16/2025 7:43 AM CDT Plan of Treatment Health Maintenance Due Date Last Done Comments Tetanus booster 2015 Depression screening for age 12+ 2016 HIV for age 15-65 2019 HPV series for age 9-45 (1 - 3-dose series) 2019 Chlamydia for age 16-24 2020 Hepatitis C screening for ag e 18-79 2022 Hepatitis B series for 19+ ( 1 of 3 - 19+ 3-dose series) 2023 Influenza Vaccine (#1) 2025 BMI (ht and wt on same day) for age 18+ 02/16/2026 02/16/2025 Well Child Check for age 3-20 02/16/2026 02/16/2025 RSV vaccine for adults or (1 - 1-dose 75+ series) 2079 Meningococcal series for age 11-21 Aged Out No longer eligible based on patient's age to complete this topic Pneumococcal series for age 6-49 Aged Out No longer eligible based on patient's age to complete this topic Procedures Procedure Name Priority Date/Time Associated Diagnosis Comments PHOSPHORUS Add On 03/10/2025 2:22 PM CDT Bulimia nervosa, unspecified severity (HC) CBC WITH AUTO DIFFERENTIAL Routine 03/10/2025 2:22 PM CDT Bulimia nervosa, unspecified severity (HC) CBC WITH AUTO DIFFERENTIAL Routine 03/10/2025 2:22 PM CDT Bulimia nervosa, unspecified severity (HC) COMP METABOLIC PANEL Routine 03/10/2025 2:22 PM CDT Bulimia nervosa, unspecified severity (HC) from Last 3 Months Results * (ABNORMAL) CBC WITH AUTO DIFFERENTIAL (03/10/2025 2:22 PM CDT) Pathologist [facility] WHITE BLOOD CELL COUNT 7.7 3.8 - 10.8 Thousand/ uL 03/11/2025 3:49 AM CDT [facility] RED BLOOD CELL COUNT 5.03 3.80 - 5.10 Million/u L 03/11/2025 3:49 AM CDT [facility] HEMOGLOBIN 13.2 11.7 - 15.5 g/dL 03/11/2025 3:49 AM CDT [facility] HEMATOCRIT 43.4 35.0 - 45.0 % 03/11/2025 3:49 AM CDT [facility] MCV 86.3 80.0 - 100.0 fL 03/11/2025 3:49 AM CDT [facility] MCH 26.2(L) 27.0 - 33.0 pg 03/11/2025 3:49 AM CDT [facility] MCHC 30.4(L) 32.0 - 36.0 g/dL 03/11/2025 3:49 AM CDT [facility] Comment: For adults, a slight decrease in the calculated MCHC value (in the range of 30 to 32 g/dL) is most likely not clinically significant; however, it should be interpreted with caution in correlation with other red cell parameters and the patient's clinical condition. RDW 13.7 11.0 - 15.0 % 03/11/2025 3:49 AM CDT [facility] PLATELET COUNT 205 140 - 400 Thousand/ uL 03/11/2025 3:49 AM CDT [facility] MPV 10.3 7.5 - 12.5 fL 03/11/2025 3:49 AM CDT [facility] NEUTROPHILS 67.5 % 03/11/2025 3:49 AM CDT [facility] LYMPHOCYTES 22.7 % 03/11/2025 3:49 AM CDT [facility] MONOCYTES 8.1 % 03/11/2025 3:49 AM CDT [facility] EOSINOPHILS 1.0 % 03/11/2025 3:49 AM CDT [facility] BASOPHILS 0.7 % 03/11/2025 3:49 AM CDT [facility] ABSOLUTE NEUTROPHILS 5198 1500 - 7800 cells/uL 03/11/2025 3:49 AM CDT [facility] ABSOLUTE LYMPHOCYTES 1748 850 - 3900 cells/uL 03/11/2025 3:49 AM CDT [facility] ABSOLUTE MONOCYTES 624 200 - 950 cells/uL 03/11/2025 3:49 AM CDT [facility] ABSOLUTE EOSINOPHILS 77 15 - 500 cells/uL 03/11/2025 3:49 AM CDT [facility] ABSOLUTE BASOPHILS 54 0 - 200 cells/uL 03/11/2025 3:49 AM CDT [facility] Blood BLOOD SPECIMEN / Unknown [facility] / Unknown 03/10/2025 2:22 PM CDT 03/10/2025 2:22 PM CDT Liz Puri MD HEMATOLOGY Final R esult [facility] [place] [address] [place] [address], * PHOSPHORUS (03/10/2025 2:22 PM CDT) [facility] PHOSPHATE ( PHOSPHORUS) 4.1 2.7 - 5.0 mg/dL 03/13/2025 1:23 AM CDT [facility] Blood BLOOD SPECIMEN / Unknown [facility] / Unknown 03/10/2025 2:22 PM CDT 03/10/2025 2:22 PM CDT Liz Puri MD CHEMISTRY Final R esult [facility] [address] [place] [address], * COMP METABOLIC PANEL (03/10/2025 2:22 PM CDT) SODIUM 140 135 - 146 mmol/L 03/11/2025 4:21 AM CDT [facility] POTASSIUM 4.4 3.5 - 5.3 mmol/L 03/11/2025 4:21 AM CDT [facility] CHLORIDE 104 98 - 110 mmol/L 03/11/2025 4:21 AM CDT [facility] CARBON DIOXIDE 29 20 - 32 mmol/L 03/11/2025 4:21 AM CDT [facility] GLUCOSE 94 65 - 99 mg/dL 03/11/2025 4:21 AM CDT [facility] Comment: Fasting reference interval CALCIUM 10.0 8.6 - 10.2 mg/dL 03/11/2025 4:21 AM CDT [facility] CREATININE 0.87 0.50 - 0.96 mg/dL 03/11/2025 4:21 AM CDT [facility] BUN/CREATININE RATIO SEE NOTE: 6 22 (calc) 03/11/2025 4:21 AM CDT [facility] Comment: Not Reported: BUN and Creatinine are within reference range. EGFR 98 > OR = 60 mL/min/1. 73m2 03/11/2025 4:21 AM CDT [facility] ALBUMIN 4.9 3.6 - 5.1 g/dL 03/11/2025 4:21 AM CDT [facility] PROTEIN, TOTAL 7.8 6.1 - 8.1 g/dL 03/11/2025 4:21 AM CDT [facility] BILIRUBIN, TOTAL 0.3 0.2 - 1.2 mg/dL 03/11/2025 4:21 AM CDT [facility] ALKALINE PHOSPHATASE 71 31 - 125 U/L 03/11/2025 4:21 AM CDT [facility] ALT 13 6 - 29 U/L 03/11/2025 4:21 AM CDT [facility] AST 22 10 - 30 U/L 03/11/2025 4:21 AM CDT [facility] UREA NITROGEN (BUN) 13 7 - 25 mg/dL 03/11/2025 4:21 AM CDT [facility] GLOBULIN 2.9 1.9 - 3.7 g/dL (calc) 03/11/2025 4:21 AM CDT [facility] ALBUMIN/GLOBULI N RATIO 1.7 1.0 - 2.5 (calc) 03/11/2025 4:21 AM CDT [facility] Blood BLOOD SPECIMEN / Unknown [facility] / Unknown 03/10/2025 2:22 PM CDT 03/10/2025 2:22 PM CDT Liz Puri MD CHEMISTRY Final R esult [facility] [address] [address], from Last 3 Months Insurance [employer] Care Teams Athletic Coach Relationship Specialty Start Date End Date Liz Puri MD [address] [place] [address] PCP - General Family Practice 02/16/25
--- OUTSIDE RECORDS SUMMARY | 2025-04-03 21:51 | XMS_ITS | Clinical Summary ---
Author Organization [facility] Address [address], [place] [address] Care Team Providers Care Turkey Farmer Name Role Phone Unavailable Primary Care Provider Unavailabl e Source Comments You are receiving this document as you are listed as the primary care provider,follow-up provider, or the patient has been referred to you for consultation.This is in compliance with the Medicare andMedicaid EHR Incentive Program,which states Providers who transition their patient to another setting of careor provider of care or refers their patient to another provider of care shouldprovide summary care record for each transition of care or referral. [facility] Allergies Active Allergy Reactions Criticality Noted Date Comments Amoxicillin Hives High 06/11/2009 Doxycycline Hives High 02/16/2025 Medications No known medications Active Problems Problem Noted Date Diagnosed Date Bradycardia 03/11/2025 Other specified eating disorder 03/02/2025 Major depressive disorder, recurrent episode, mo derate 03/02/2025 NITESH (generalized anxiety disorder) 03/02/2025 Encounters Date Type Department Care Team Description 04/02/2025 2:40 PM CDT Office Visit [facility] [address] [place] [address] Vinita Heredia MD Other specified eating disorder (Primary Dx); Major depressive disorder, recurrent episode, moderate (HRC); NITESH (generalized anxiety disorder) (HRC); Bradycardia 03/31/2025 2:00 PM CDT Telemedicine [facility] [address] [place] [address] Augusta Ba, CUSHION FORMER, LINE MAINTENANCE TECHNICIAN Other specified eating disorder (Primary Dx); Major depressive disorder, recurrent episode, moderate (HRC); NITESH (generalized anxiety disorder) (HRC) 03/11/2025 1:00 PM CDT Office Visit [facility] [address] [place] [address] Vinita Heredia MD Other specified eating disorder (Primary Dx); Major depressive disorder, recurrent episode, moderate (HRC); NITESH (generalized anxiety disorder) (HRC); Bradycardia 03/02/2025 12:55 PM CDT - 03/02/2025 11:59 PM CDT Hospital Encounter [facility] [address] [place] [address] Delisa Blandon, PhD, LP Other specified eating disorder (Primary Dx); Major depressive disorder, recurrent episode, moderate (HRC); NITESH (generalized anxiety disorder) (HRC) Discharge Disposition: Still a Patient 03/02/2025 Care Coord Documentation [facility] [address] [place] [address] Sonya Pereyra MA from Last 3 Months Social History Tobacco [...] Mass Index 22.19 04/02/2025 2:22 PM CDT Plan of Treatment Upcoming Encounters Date Type Department Care Team (Late st Contact Info) Description 04/09/2025 2:00 PM CDT Telemedicine [facility] [address] [place] [address] Augusta Ba, CUSHION FORMER, LINE MAINTENANCE TECHNICIAN [address] [place] [address] 04/10/2025 8:00 AM CDT Telemedicine [facility] [address] [facility] [address] [place] [address] Marissa Salas, RDN, LD [address] [address] 04/21/2025 8:00 AM BELLHOP CAPTAIN Telemedicine [facility] [address] [address] Augusta Ba, CUSHION FORMER, LINE MAINTENANCE TECHNICIAN [address] [phone] 04/23/2025 3:00 PM BELLHOP CAPTAIN Appointment [facility] [address] [address] Vinita Heredia MD [address] [facility] [address] [place], [place] [address] 04/30/2025 1:00 PM BELLHOP CAPTAIN Telemedicine [facility] [address] [address] Augusta Ba, CUSHION FORMER, LINE MAINTENANCE TECHNICIAN [address] [place] [phone] Health Maintenance Due Date Last Done Comments Chlamydia 2004 Hep C Screening (Preventive Services) 2004 MenB Immunization Discussion 2004 HPV Vaccine (1 - 3-dose series) 2019 HIV Screening (Preventive Services) 2020 Adult Preventive Visit 2022 DTaP/Tdap/Td Vaccine (1 - Tdap) 2023 HepB Vaccine (1) 2023 COVID-19 Vaccine (1 - 2023-2 5 season) 2025 Influenza Vaccine (#1) 2025 Zoster/Shingles Vaccine (1 of 2) 2054 HepA Vaccine Aged Out No longer eligi ble based on patient's age to complete this topic Hib Vaccine Aged Out No longer eligi ble based on patient's age to complete this topic IPV (Polio) Vaccine Aged Out No longe r eligible based on patient's age to complete this topic MCV4 Vaccine Aged Out No longer eligi ble based on patient's age to complete this topic Pneumococcal Vaccine Aged Out No long er eligible based on patient's age to complete this topic Insurance [employer]
[2025-04-03 22:26] VITALS: BP 119/77; PULSE 79; RESP 16; TEMP 36.3; O2SAT 98; BMI 48.7
--- NOTE | 2025-04-03 23:42 | ED.NAVMDI ---
HPI - Nausea/Vomiting/Diarrhea General Time Seen by Provider: 23:43 Date Seen: 04/03/25 Chief complaint: Nausea/Vomiting Stated complaint: vomiting Time Seen by Provider: 04/03/25 23:42 Source: patient, RN notes reviewed and old records reviewed Mode of arrival: ambulatory Limitations: no limitations History of Present Illness HPI Narrative: 19-year-old female presents today with nausea, vomiting, diarrhea, generalized abdominal pain. Patient has a history of some abdominal pain related to restrictive eating disorder and trying to increase oral intake, also some history of constipation. Today has had increased pain and then nausea vomits afternoon, little bit of diarrhea also. No blood in the emesis and no blood in the stools. No fevers or chills, no urinary symptoms, denies possibility of . Related Data Home Medications ?Medication ?Instructions ?Recorded ?Confirmed No Known Home Medications 03/05/25 04/03/25 Allergies Allergy/AdvReac Type Severity Reaction Status Date / Time Penicillins Allergy Verified 04/03/25 22:38 PFSH PFSH Social History Smoking Status: Never smoker Do you use any of these nicotine containing products: None How often do you have a drink containing alcohol: monthly or less How many standard drinks containing alcohol do you have on a typical day: 1 or 2 How often do you have six or more drinks on one occasion: Never AUDIT-C Alcohol total score: 1 Non-prescribed substance use: denies use service: No Exam Narrative: Exam Narrative: General: Well-developed and well-nourished, no acute distress Head: Atraumatic and normocephalic Eyes: Pupils are equal reactive, extraocular motions intact, conjunctiva clear ENT: External nose and ears are normal, posterior pharynx without erythema or exudate Neck: No midline cervical tenderness, full spontaneous range of motion the neck, trachea midline, no adenopathy Heart: Regular rate and rhythm no murmurs or thrills Lungs: Clear to auscultation bilaterally without wheezes or crackles Abdomen: Soft, mild diffuse abdominal tenderness with no specific right upper quadrant or right lower quadrant tenderness, nondistended with active bowel sounds Musculoskeletal: No tenderness, deformity, or edema Neurologic: Awake, alert, and oriented x3, no gross focal neurologic deficits, cranial nerves intact as tested Psych: Mood and affect are appropriate Skin: No rashes Const: Vital Signs, click to edit/add: Vital Signs - 24 hr 04/03/25 22:26 Temperature 97.3 F L Pulse Rate [Pulse Oximeter] 79 Respiratory Rate 16 Blood Pressure [Ri ght Upper Arm] 119/77 Pulse Oximetry 98 Course Course ED Course: Reviewed most recent urgent care visit from February 2025 when patient is complaining of about 10 days of right-sided abdominal pain. CBC normal at that time. Also reviewed eating disorder clinic visit from April 02 which was routine follow-up for unspecified eating disorder, anxiety. Patient presents today with generalized abdominal pain, nausea, vomiting, and some diarrhea starting today. On exam, vital is stable, appears comfortable, mild diffuse abdominal tenderness. Labs are ordered, suspect gastroenteritis, food borne illness possible but less likely. Will evaluate for electrolyte disturbance, IV fluids and Zofran are given as well as Pepcid. Reevaluation(s) Time of Reevaluation #1: 01:11 Reevaluation #1: Labs independently interpreted by me with reassuring basic panel, slightly elevated AST of 36 per remaining of the hepatic panel is normal. Patient is stable for discharge with outpatient follow-up, Zofran as needed for nausea vomiting. Vital Signs Vital signs: Initial Vital Signs Temperature 97.3 F L 04/03/25 22:26 Temperature Source Temporal Artery Scan 04/03/25 22:26 Pulse Rate 79 04/03/25 22:26 Respiratory Rate 16 04/03/25 22:26 Blood Pressure 119/77 04/03/25 22:26 Blood Pressure Mean 91 04/03/25 22:26 Pulse Oximetry 98 04/03/25 22:26 Vital Signs Temperature 97.3 F L 04/03/25 22:26 Pulse Rate 79 04/03/25 22:26 Respiratory Rate 16 04/03/25 22:26 Blood Pressure 119/77 04/03/25 22:26 Pulse Oximetry 98 04/03/25 22:26 Temperature 97.3 F L 04/03/25 22:26 Pulse Rate 79 04/03/25 22:26 Respiratory Rate 16 04/03/25 22:26 Blood Pressure 119/77 04/03/25 22:26 Pulse Oximetry 98 04/03/25 22:26 Medications Administered Medications: Discontinued Medications Generic Name Dose Route Start Last Admin Trade Name Freq PRN Reason Stop Dose Admin Famotidine 20 mg 04/04/25 00:09 04/04/25 00:40 Famotidine 10 Mg/Ml Inj IVP 04/04/25 00:10 20 mg ONCE ONE Administration Sodium Chloride 1,000 mls @ 1,000 mls/hr 04/04/25 00:15 04/04/25 00:33 0.9 % Sodium Chloride 1000 Ml IV 04/04/25 01:14 1,000 mls/hr .Q1H ZOHRA Administration Ondansetron HCl 4 mg 04/04/25 00:06 04/04/25 00:40 Ondansetron 2 Mg/Ml Inj IVP 04/04/25 00:07 4 mg ONCE ONE Administration MDM - Nausea/Vomiting/Diarrhea Lab Data Labs: Lab Results 04/04/25 Range/Units 00:35 Sodium 137 (135-149) mmol/L Potassium 4.3 (3.6-5.1) mmol/L Chloride 97 (96-114) mmol/L Carbon Dioxide 25 (20-32) mmol/L Anion Gap 15 (7-15) mEq/L BUN 18 (5-24) mg/dL Creatinine 0.8 (0.5-1.5) mg/dL Estimated Creat Clear 129.45 Estimated GFR 108 ml/min Glucose 130 H (60-115) mg/dL Calcium 10.5 (8.4-10.6) mg/dL Magnesium 1.7 (1.5-2.6) mg/dL Total Bilirubin 0.5 (0.1-1.5) mg/dL Direct Bilirubin 0.1 (0.0-0.5) mg/dL AST 36 H (12-35) U/L ALT 23 (4-35) U/L Alkaline Phosphatase 77 (40-150) U/L Total Protein 9.2 H (6.0-8.3) g/dL Albumin 5.3 H (3.3-5.0) g/dL Lipase 43 (23-300) U/L Discharge Plan Discharge Clinical Impression: Nausea vomiting and diarrhea Patient Disposition: Home, Self-Care Condition: Stable Instructions: Acute Nausea and Vomiting (DC) Additional Instructions: Tylenol and ibuprofen as needed for pain Zofran as needed for nausea vomiting Follow-up with primary care in 3-7 days if not better Activity Level: Activity as Tolerated Discharge Diet: Regular Prescriptions: No Action No Known Home Medications Follow Up/Referrals: Provider,Not a Local [Primary Care Provider, Family Practice] Stand Alone Forms: MyHealth Info Instructions
[2025-04-04] MEDS: ONDANSETRON 2 MG/ML inj 4 MG IVP (00:40)
[2025-04-04] MEDS: FAMOTIDINE 10 MG/ML inj 20 MG IVP (00:40)
[2025-04-04 00:49] LABS: Albumin* 5.3 g/dL (3.3-5.0)
[2025-04-04 00:50] LABS: Chloride* 97 mmol/L (96-114); Potassium* 4.3 mmol/L (3.6-5.1); Sodium* 137 mmol/L (135-149)
[2025-04-04 00:52] LABS: Alanine Aminotransferase* 23 U/L (4-35); Anion Gap 15 mEq/L (7-15); Aspartate Amino Transferase* 36 U/L (12-35); Blood Urea Nitrogen* 18 mg/dL (5-24); Carbon Dioxide* 25 mmol/L (20-32); Creatinine* 0.8 mg/dL (0.5-1.5); Est. Creatinine Clearance* 129.45; Estimated Glomerular Filt Rate 108 ml/min; Total Protein* 9.2 g/dL (6.0-8.3)
[2025-04-04 00:53] LABS: Alkaline Phosphatase* 77 U/L (40-150); Bilirubin Direct* 0.1 mg/dL (0.0-0.5); Bilirubin Total* 0.5 mg/dL (0.1-1.5); Calcium* 10.5 mg/dL (8.4-10.6); Glucose* 130 mg/dL (60-115)
== END 2025-04-04 01:32 | disposition home or self-care (01) ==
PROVIDERS: Emergency Provider Family Medicine; Visit Provider Family Medicine
DX: R11.2 Nausea with vomiting, unspecified (principal); R19.7 Diarrhea, unspecified
CPT/HCPCS: 36415; 80048; 80076; 83690; 83735; 96361; 96374; 96375; 99284; J1308; J2405; J7030

== ENCOUNTER 2025-04-04 16:33 | Observation (INO) | payer OTHER, SELFPAY ==
--- OUTSIDE RECORDS SUMMARY | 2025-03-02 12:55 | XMS_ITS | Encounter Summary ---
Author Organization [employer] Address [address], [place] [address] Care Team Providers Care Sales Representative Livestock Name Role Phone Unavailable Primary Care Provider Unavailabl e Reason for Visit * Reason Comments EATING DISORDER Encounter Details Date Type Department Care Team (Latest Contact Info) Description 03/02/2025 12:55 PM CDT - 03/02/2025 11:59 PM CDT Hospital Encounter [facility] [address] [place] [address] [phone] Delisa Blandon, PhD, [address] [address] Other specified eating disorder (Primary Dx); Major [...] from the original note were not included. [facility] Standard Diagnostic Assessment Start Time: 1:00 p.m. End Time: 1:50 p.m. Patient was seen alone. This appointment was conducted via telehealth (video) as it is the patient???s preference and it isappropriate for the treatment being provided. Patient location: other [facility], Clinician location: clinic There are potential benefits [...] Blandon, PH.D., L.P. Location of Initial Assessment: [place] Referral Source: Primary Care Provider, real she saw for sports clearance. Dr. Cheatham from [facility] recommend eating disorder evaluation. Reason for Referral [...] has happened. She reports originally going to [employer] in [place]. Patient has a legal guardian: Subjective Family & Cultural History Patient was born in [place], [place] , raised by parents. She has twin sister who lives in [place]. . Parents are in process of divorce, she stated they are not happy. Current living situation: lives in dorm with two roommates. Described that is going well. She reports trouble sleeping. 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 Level of education: college. Is in biology. Employment (occupation and current work status): denied working. status: Gender Identity/Preferred Pronouns: Her/ She Information about race, ethnicity, gender identity, sexual orientation, national origin, and language includes . Bisexual. Scientologist and cultural beliefs/practices: .denied. Strengths, hobbies, interests: skiing, likes to draw and paint and play music. History of Presenting Illness Presenting concerns as reported by patient: Duration of these concerns: Estimates struggling with eating for a year and 1/2 or two years. She took a gap year between senior year and college. She lived in a different part of [place] at this time . She was training [...] to eat on her own. Chewing/spitting: No Yarsanism-driven eating: No Vegan/vegetarian: No, did following vegetarian [...] the following mental health services: She described motor coach tour operator last year tried to help me get services at [facility]. Spoke with [facility] were also [...] of country. Sister is across town at [employer]. Quality of these relationships: General life stressors/concerns: [...] y.o. , female, who was referred to [facility] for this evaluation by Latia. Laura [...] Info) Description 04/09/2025 2:00 PM CDT Telemedicine [facility] [address] [place] [address] Augusta Ba, LIBRARY MEDIA TECHNICIAN, LAB PACK CHEMIST [facility] [address] [place] [address] 04/10/2025 8:00 AM CDT Telemedicine [facility] [address] [place] [address] Marissa Salas RDN, LD [address] [address] 04/21/2025 8:00 AM FAMILY SUPPORT WORKER Telemedicine [facility] [address] [place] [address] Augusta Ba, LIBRARY MEDIA TECHNICIAN, [facility] [address] [address] 04/23/2025 3:00 PM FAMILY SUPPORT WORKER Appointment [facility] [address] [place] [address] [address] [place] [address] Vinita Heredia MD [address] [facility] [address] [facility] [address] [place], [place] [id number] 04/30/2025 1:00 PM FAMILY SUPPORT WORKER Telemedicine [facility] [address] [place] [address] [address] [place], [place] [phone] Augusta Ba, LESLEE, [address] [id number] documented as of this encounter Visit Diagnoses Diagnosis Other specified eating disorder- Primary Major depressive disorder, recurrent episode, moderate (HRC) Major depressive disorder, recurrent episode, moderate NITESH (generalized anxiety disorder) (HRC) Generalized anxiety disorder documented in this encounter
--- OUTSIDE RECORDS SUMMARY | 2025-03-11 13:00 | XMS_ITS | Encounter Summary ---
Author Organization [employer] Address [address], [place] [address] Care Team Providers Care Dopeman Name Role Phone Unavailable Primary Care Provider Unavailabl e Reason for Visit * Reason Comments EATING DISORDER Encounter Details Date Type Department Care Team (Late st Contact Info) Description 03/11/2025 1:00 PM CDT Office Visit [facility] 5 [facility], [address] [place] [address] Vinita Heredia MD [address] [facility] [address] [place] [address] Other specified eating disorder (Primary Dx); Major depressive disorder, recurrent episode, moderate (HRC); NITESH (generalized anxiety disorder) (HRC); Bradycardia Social History Tobacco Use Types Packs/Day Years Used Date Smoking Tobacco: Never Assessed PHQ-2 Answer Date Recorded PHQ-2 Score 5 03/11/2025 Comments No Sex and Gender Information Value Date Recorded Sex Assigned at Not on file Legal Sex Female 8:44 AM CDT Gender Identity Not on file Sexual Orientation Not on file documented as of this encounter Last Filed Vital Signs Vital Sign Reading Time Taken Comments Blood Pressure 107/62 03/11/2025 1:14 PM CDT Pulse 76 03/11/2025 1:14 PM CDT Temperature - - Respiratory Rate - - Oxygen Saturation - - Inhaled Oxygen Concentration - - Weight 73.9 kg (163 lb) 03/11/2025 1:08 PM CDT Height 182.2 cm (5' 11.73) 03/11/2025 1:08 PM C DT Body Mass Index 22.27 03/11/2025 1:08 PM CDT documented in this encounter Progress Notes * Vinita Heredia MD - 03/11/2025 1:00 PM CDT Images from the original note were not included. [facility] Outpatient Medical Progress Note Date: 03/11/2025 Name: Laura Corrales : 2005 Age: 19 y.o. Chief Complaint: Outpatient follow up regarding their eating disorder. HPI: Eating disorder: Chart notes reviewed. Pt had LP [place] 03/02/25 with diagnosis of OSFED. Symptoms primarily include restrictive eating. Has also experienced subjective vs objective binges, purging. Laura notes that she has had some degree of rules around food that preceded frankly disordered eating. For many years she would notice and try to limit added sugar intake. She shares that in high school she would sometimes under-eat but would not be intentional, it would be because she was so busy. Thinks overall she was pretty consistent with growth patterns during that time. In college she has struggled with restrictive eating. She was purging previously, but has not purged in the month that she has been at school. She tries to fill up on lower calorie foods. Feels like she is in a better place with eating disorder symptoms than she has been in the past. Will sometimes try to get by with skipping a meal or have something that is not a whole meal. Feels she is eating a more normal amount of food for her activity level, but feels guilty about it. Has been getting a lot of stomachaches over the last couple of weeks. Went to urgent care and had eval for appendicitis. Does think she is likely constipated, she was really stressed the first couple of weeks of school and was eating little, slowed digestion. Started dulcolax and fiber after urgent care visit but symptoms have not improved. Doesn't have predictable hunger or fullness cues. Can feel full after a couple of bites, or feel ravenous at times. Worries about losing control and purging. Laura is attending college at [employer] and does not have her own car. Medical follow up with [place] will be limited by this, does think she could try to have monthly check ins. Current eating patterns: Getting 3 meals per day typically and 0-3 snacks per day. Does think plate is typically full for a meal. Breakfast yogurt and fruit, lunch and dinner usuallysalad with veggies and chicken or tofu, or soup. Acknowledges that plate is probably 3/4 veggies. Snacks are typically fruit, protein or granola bar, or yogurt cup. Occasionally will get a dessert from dining vega. Will drink coffee (4 cups) and water. Reported LMP as December to PCP. Physical Exam: 03/11/2025 1:08 PM 03/11/2025 1:14 PM Vitals Pulse 53 76 Patient's Position during Vital Signs Supine Standing BP 118/53 107/62 03/11/2025 1:08 PM Height & Weight Weight in lbs 163 lb Weight in kg 73.936 kg Height in cm 182 cm Height in ft / in 5' 11.732 Wt Readings from Last 3 Encounters: 03/11/25 73.9 kg (163 lb) Estimated body mass index is 22.27 kg/m?? as calculated from the following: Height as of this encounter: 1.822 m (5' 11.73). Weight as of this encounter: 73.9 kg (163 lb). No previous contact with both weight and height dataon file. No data to display BMI Readings from Last 1 Encounters: 03/11/25 22.27 kg/m?? GENERAL: no acute distress, cooperative to examination. HEAD/ENT/MOUTH: NCAT MS/EXTREM: normal gait, extremities normal, atraumatic, no cyanosis or edema SKIN: dry, no lesions or rashes NEURO: alert, oriented to situation, moves all extremities, no involuntary movements PSYCH: full range of affect Lab results: Outside labs reviewed. Labs/EKG ordered: no. Problems addressed: 1. Other specified eating disorder 2. Major depressive disorder, recurrent episode, moderate (HRC) 3. NITESH (generalized anxiety disorder) (HRC) 4. Bradycardia Plan: Pt presents with new diagnosis of OSFED, primary symptom of restriction and hx of purging (has abstained from the latter for 1 month). We reviewed initial nutrition goals. Encouraged 3 meals and 3 snacks. Reviewed initial portions. Discussed attempting to eat full portion for meals via plate by plate method. If she is struggling with fullness after only a few bites given unpredictable hunger cues, encouraged waiting 5 minutes and resuming the meal. If still struggling, eat 2 bites beyond fullness for that eating occurrence. At this time, given report of amenorrhea as well as bradycardia with notable orthostatic pulse gap,I recommend pausing exercise until nutrition is more stable. May engage in leisure walks with friends, stretching, gentle yoga. Mood: Encourage consultation with psychiatry. No current pharmacologic therapy. Continue to monitor. Contacted PCP who will add on phos to yesterday's labs. Decision/discussion/plan regarding levels of care/treatment: Continue to work on developing and utilizing healthy coping skills and moving away from the eating disorder. Continue to assess appropriate level of care. Continue to update team and coordinate care as needed. Follow up in 2 weeks, or sooner prn. documented in this encounter Plan of Treatment Upcoming Encounters Date Type Department Care Team (Late st Contact Info) Description 04/09/2025 2:00 PM CDT Telemedicine [facility] [address] [address] Augusta Ba, TECHNICIAN SUPPORT ENGINEER, HOME DEMONSTRATOR [address] [address] 04/10/2025 8:00 AM CDT Telemedicine [facility] [address] [address] Marissa Salas, MAGGIEN, LD [address] [address] 04/21/2025 8:00 AM HAND GLOVE CLEANER Telemedicine [facility] [address] [address] Augusta Ba MSW, HOME DEMONSTRATOR [address] [address] 04/23/2025 3:00 PM HAND GLOVE CLEANER Appointment [facility] [address] [id number] Vinita Heredia MD [address] [facility] [address] [place], [place] [address] 04/30/2025 1:00 PM HAND GLOVE CLEANER Telemedicine [facility] [address] [facility], [address] [place] [address] Augusta Ba, TECHNICIAN SUPPORT ENGINEER, HOME DEMONSTRATOR [address] [facility] [address] [place], [place] [phone] documented as of this encounter Visit Diagnoses Diagnosis Other specified eating disorder- Primary Major depressive disorder, recurrent episode, moderate (HRC) Major depressive disorder, recurrent episode, moderate NITESH (generalized anxiety disorder) (HRC) Generalized anxiety disorder Bradycardia Other specified cardiac dysrhythmias documented in this encounter
--- OUTSIDE RECORDS SUMMARY | 2025-03-31 14:00 | XMS_ITS | Encounter Summary ---
Author Organization [employer] Address [address] [address] Care Team Providers Care Graduate Assistant Athletic Trainer Name Role Phone Unavailable Primary Care Provider Unavailabl e Reason for Visit * Reason Comments EATING DISORDER Encounter Details Date Type Department Care Team (Late st Contact Info) Description 03/31/2025 2:00 PM CDT Telemedicine [facility] [address] [place] [address] Augusta Ba, LESLEE, ELECTRIC WELDER HELPER [address] [place] [phone] Other specified eating disorder (Primary Dx); Major depressive disorder, recurrent episode, moderate (HRC); NITESH (generalized anxiety disorder) (HRC) Social History Tobacco Use Types Packs/Day Years Used Date Smoking Tobacco: Never Assessed PHQ-2 Answer Date Recorded PHQ-2 Score 5 03/31/2025 Comments No Sex and Gender Information Value Date Recorded Sex Assigned at Not on file Legal Sex Female 8:44 AM CDT Gender Identity Not on file Sexual Orientation Not on file documented as of this encounter Functional Status documented as of this encounter Plan of Treatment Upcoming Encounters Date Type Department Care Team (Late st Contact Info) Description 04/09/2025 2:00 PM CDT Telemedicine [facility] [address] [place] [address] Augusta Ba MSW, ELECTRIC WELDER HELPER [address] [place] [phone] 04/10/2025 8:00 AM CDT Telemedicine [facility] [address] [place] [address] Marissa Salas RDN, LD 2550 [facility] [address] [place] [address] 04/21/2025 8:00 AM GOVERNMENT RELATIONS ANALYST Telemedicine [facility] [address] [facility] 200 [place] [address] Augusta Ba MSW, DIANA [address] [phone] 04/23/2025 3:00 PM GOVERNMENT RELATIONS ANALYST Appointment [facility] [address] [facility] 200 [place] [address] Vinita Heredia MD 96[address] [facility] [address] [place], [place] [phone] 04/30/2025 1:00 PM GOVERNMENT RELATIONS ANALYST Telemedicine [facility] [address] [address] Augusta Ba MSW, DIANA [address] [place] [phone] documented as of this encounter Visit Diagnoses Diagnosis Other specified eating disorder- Primary Major depressive disorder, recurrent episode, moderate (HRC) Major depressive disorder, recurrent episode, moderate NITESH (generalized anxiety disorder) (HRC) Generalized anxiety disorder * Assessment/Plan - Augusta Ba MSW, DIANA - 03/31/2025 2:00 PM CDT Suicide Risk Summary Overall Suicide Risk Assessment Level: Low Risk. The risk assessment is based on the patient's current responses to completed screening(s), individual risk and protective factors, current presentation, and clinical history. Plan and actions taken with the patient: Treat psychiatric symptoms, Increase social support documented in this encounter
--- OUTSIDE RECORDS SUMMARY | 2025-04-02 14:40 | XMS_ITS | Encounter Summary ---
Author Organization [employer] Address [address], [place] [address] Care Team Providers Care Lip Of Shank Cutter Name Role Phone Unavailable Primary Care Provider Unavailabl e Reason for Visit * Reason Comments EATING DISORDER Encounter Details Date Type Department Care Team (Late st Contact Info) Description 04/02/2025 2:40 PM CDT Office Visit [facility] 5 [facility], [address] [place] [address] Vinita Heredia MD [address] [facility] [address] [place] [address] Other specified eating disorder (Primary [...] Sign Reading Time Taken Comments Blood Pressure 112/74 04/02/2025 2:24 PM CDT Pulse 70 04/02/2025 2:24 PM CDT Temperature - - Respiratory Rate - - Oxygen Saturation - - Inhaled Oxygen Concentration - - Weight 73.7 kg (162 lb 6.4 oz) 04/02/2025 2:22 P M CDT Height 182.2 cm (5' 11.73) 04/02/2025 2:22 PM C DT Body Mass Index 22.19 04/02/2025 2:22 PM CDT documented in this encounter Plan of Treatment Upcoming Encounters Date Type Department Care Team (Late st Contact Info) Description 04/09/2025 2:00 PM CDT Telemedicine [facility] [address] [facility] [address] [place] [address] Augusta Ba, HORSE AND WAGON DRIVER, LACE WEAVER [address] [place] [address] 04/10/2025 8:00 AM CDT Telemedicine [facility] [address] [place], [place] [address] [address] Marissa Salas RDN, LD 2550 [facility] 216 [place] [address] 04/21/2025 8:00 AM EVENT OPERATIONS MANAGER Telemedicine [facility] [address] [address] Augusta aB MSW, LACE WEAVER [address] [place] [phone] 04/23/2025 3:00 PM EVENT OPERATIONS MANAGER Appointment [facility] [address] [place] [address] [address] [address] Vinita Heredia MD [address] [facility] [address] [place], [place] [phone] 04/30/2025 1:00 PM EVENT OPERATIONS MANAGER Telemedicine [facility] [address] [place] [address] [address] [address] Augusta Ba MSW, LACE WEAVER [address] [place] [phone] documented as of this encounter Visit Diagnoses Diagnosis Other specified eating disorder- Primary Major depressive disorder, recurrent episode, moderate (HRC) Major depressive disorder, recurrent episode, moderate NITESH (generalized anxiety disorder) (HRC) Generalized anxiety disorder Bradycardia Other specified cardiac dysrhythmias documented in this encounter
--- OUTSIDE RECORDS SUMMARY | 2025-04-04 16:36 | XMS_ITS | Clinical Summary ---
Author Organization [facility] Address [address] [place] [address] Care Team Providers Care Service Line Layer Name Role Phone Liz Puri MD Primary Care Provider Allergies Active Allergy Reactions Criticality Noted Date Comments Amoxicillin Hives,Arthralgia 06/11/2009 Doxycycline Hives 02/16/2025 Medications No known medications Active Problems Problem Noted Date Diagnosed Date Bulimia nervosa 02/16/2025 Personal history of nonsuicidal self-harm 2024 Encounters Date Type Department Care Team Description 03/10/2025 2:15 PM CDT Orders Only [facility] [address] [place] [address] Lab, [facility] 03/10/2025 Travel 02/16/2025 7:25 AM CDT Office Visit [facility] [address] [place] [address] Liz Puri MD Sports Physical; Allergies (Amoxicillin [...] AUTO DIFFERENTIAL (03/10/2025 2:22 PM CDT) Pathologist [facility] WHITE BLOOD CELL COUNT 7.7 3.8 - [...] MD HEMATOLOGY Final R esult [facility] [place] [address] [place] [address], * PHOSPHORUS (03/10/2025 2:22 PM CDT) [facility] PHOSPHATE ( PHOSPHORUS) 4.1 2.7 - 5.0 mg/dL 03/13/2025 1:23 AM CDT [facility] Blood BLOOD SPECIMEN / Unknown [facility] / Unknown 03/10/2025 2:22 PM CDT 03/10/2025 2:22 PM CDT Liz Puri MD CHEMISTRY Final R esult [facility] [address] [place] [address], * COMP METABOLIC PANEL (03/10/2025 2:22 PM [...] PM CDT 03/10/2025 2:22 PM CDT Liz Prui MD CHEMISTRY Final R esult [facility] [address] [address], from Last 3 Months Insurance [employer] Care Teams Service Line Layer Relationship Specialty Start Date End Date Liz Puri MD [address] [place] [address] PCP - General Family Practice 02/16/25
--- OUTSIDE RECORDS SUMMARY | 2025-04-04 16:36 | XMS_ITS | Clinical Summary ---
Author Organization [facility] Address [address] [address] Care Team Providers Care Automobile Mechanic Helper Name Role Phone Unavailable Primary Care Provider [...] for each transition of care or referral. [facility] Allergies Active Allergy Reactions Criticality Noted Date Comments Amoxicillin Hives High 06/11/2009 Doxycycline Hives High 02/16/2025 Medications No known medications Active Problems Problem Noted Date Diagnosed Date Bradycardia 03/11/2025 Other specified eating disorder 03/02/2025 Major depressive disorder, recurrent episode, mo derate 03/02/2025 NITESH (generalized anxiety disorder) 03/02/2025 Encounters Date Type Department Care Team Description 04/02/2025 2:40 PM CDT Office Visit [facility] [address] [place] [address] Vinita Heredia MD Other specified eating disorder (Primary Dx); Major depressive disorder, recurrent episode, moderate (HRC); NITESH (generalized anxiety disorder) (HRC); Bradycardia 03/31/2025 2:00 PM CDT Telemedicine [facility] [address] [place] [address] Augusta Ba, ELECTRONIC ENGINEERING DRAFTSPERSON, FILLING HAULER Other specified eating disorder (Primary Dx); Major depressive disorder, recurrent episode, moderate (HRC); NITESH (generalized anxiety disorder) (HRC) 03/11/2025 1:00 PM CDT Office Visit [facility] [address] [place] [address] Vinita Heredia MD Other specified eating disorder (Primary Dx); Major depressive disorder, recurrent episode, moderate (HRC); NITESH (generalized anxiety disorder) (HRC); Bradycardia 03/02/2025 12:55 PM CDT - 03/02/2025 11:59 PM CDT Hospital Encounter [facility] [address] [place] [address] Delisa Blandon, PhD, LP Other specified eating disorder (Primary Dx); Major depressive disorder, recurrent episode, moderate (HRC); NITESH (generalized anxiety disorder) (HRC) Discharge Disposition: Still a Patient 03/02/2025 Care Coord Documentation [facility] [address] [place] [address] Sonya Pereyra MA from Last 3 [...] Info) Description 04/09/2025 2:00 PM CDT Telemedicine [facility] [address] [place] [address] Augusta Ba, ELECTRONIC ENGINEERING DRAFTSPERSON, FILLING HAULER [address] [place] [address] 04/10/2025 8:00 AM CDT Telemedicine [facility] [address] [facility] [address] [place] [address] Marissa Salas, RDN, LD [address] [address] 04/21/2025 8:00 AM MODULAR SET CREW MEMBER Telemedicine [facility] [address] [address] Augusta Ba, ELECTRONIC ENGINEERING DRAFTSPERSON, FILLING HAULER [address] [phone] 04/23/2025 3:00 PM MODULAR SET CREW MEMBER Appointment [facility] [address] [address] Vinita Heredia MD [address] [facility] [address] [place], [place] [address] 04/30/2025 1:00 PM MODULAR SET CREW MEMBER Telemedicine [facility] [address] [address] Augusta Ba, ELECTRONIC ENGINEERING DRAFTSPERSON, FILLING HAULER [address] [place] [phone] Health Maintenance Due Date Last Done Comments [...]
--- OUTSIDE RECORDS SUMMARY | 2025-04-04 16:36 | XMS_ITS | Encounter Summary ---
Author Organization [facility] Address [address] [place] [address] Care Team Providers Care Grain Scooper Name Role Phone Ofe Weathers PAC Unavailable [phone] Kendal Rogel PMHNP Unavailable [phone] Ofe Weathers PAC Primary Care Provider [phone] Encounter Details Date Type Department Care Team (Late st Contact Info) Description 05/06/2024 Orders Only [facility] Lab [address] [place] [id number] Kendal Rogel, PMHNP [address] [place] [address] Social History Tobacco Use Types Packs/Day Years [...] 145 mEq/L 05/08/2024 12:58 PM [facility] Potassium 4.5 3.5 - 5.1 mEq/L 05/08/2024 12:58 PM [facility] Chloride 105 96 - 108 mEq/L 05/08/2024 12:58 PM [facility] Carbon Dioxide 24 21 - 30 mEq/L 05/08/2024 12:58 PM [facility] Anion Gap 13 7 - 16 mEq/L 05/08/2024 12:58 PM [facility] Blood Urea Nitrogen 18 6 - 20 mg/dL 05/08/2024 12:58 PM [facility] Creatinine 0.98 0.59 - 1.04 mg/dL 05/08/2024 12:58 PM [facility] BUN Creatinine Ratio 18.4 05/08/2024 12:58 PM [facility] Glucose 74 70 - 99 mg/dL 05/08/2024 12:58 PM [facility] Comment:Per ADA guidelines t hese ranges are for fasting glucose only Protein 7.4 6.4 - 8.3 g/dL 05/08/2024 12:58 PM [facility] Albumin 4.9 3.5 - 5.1 g/dL 05/08/2024 12:58 PM [facility] Globulin 2.5 2.0 - 3.5 g/dL 05/08/2024 12:58 PM [facility] Albumin/Globulin Ratio 2.0 05/08/2024 12:58 PM [facility] Bilirubin 0.3 <=1.2 mg/dL 05/08/2024 12:58 PM [facility] Calcium 9.9 8.6 - 10.0 mg/dL 05/08/2024 12:58 PM [facility] Alkaline Phosphatase 94 35 - 104 U/L 05/08/2024 12:58 PM [facility] AST 22 8 - 43 U/L 05/08/2024 12:58 PM [facility] ALT 14 7 - 45 U/L 05/08/2024 12:58 PM [facility] EGFR (MDRD) >60 >60.0 mL/min/1.7 3m(2) 05/08/2024 12:58 PM EST [facility] Comment:This test has multip le limitations. Please see [email or web address]. Blood VENOUS STRUCTURE / Unknown Venipuncture / Unknown 05/07/2024 12:57 PM EST 05/07/2024 12:59 PM EST Kendal Rogel PMHNP CHEMISTRY ORDERABLES Kylie l Result Performing Organization Address City/[facility]/ZIP Co de Phone Number [facility] [address] [place] [address] * TSH REFLEX THYROXINE FREE (05/07/2024 12:57 PM EST) TSH 0.851 0.270 - 4.200 uIU/mL 05/08/2024 12:58 PM [facility] Blood VENOUS STRUCTURE / Unknown Venipuncture / Unknown 05/07/2024 12:57 PM EST 05/07/2024 12:59 PM EST Kendal Rogel PMHNP CHEMISTRY ORDERABLES Kylie l Result Performing Organization Address City/[facility]/ZIP Co de Phone Number [facility] [address] [place], [place] [id number] * (ABNORMAL) LIPID PANEL (05/07/2024 12:57 PM EST) Cholesterol 188 See comment mg/dL 05/08/2024 12:58 PM [facility] Comment: Fasting and Non-Fasting Desirable: <200 mg/dL Borderline high: 200-239 mg/dL High: > or = 240 mg/dL Triglycerides 104 See comment mg/dL 05/08/2024 12:58 PM [facility] Comment: Flagging of Abnormals is based on fasting value Fasting Normal: <150 mg/dL Borderline high: 150-199 mg/dL High: 200-499 mg/dL Very high: > or = 500 mg/dL Non-Fasting Males: <200 mg/dL Females: <175 mg/dL HDL Cholesterol 55 See comment mg/dL 05/08/2024 12:58 PM [facility] Comment: Fasting and Non-Fasting Males: > or = 40 mg/dL Females: > or = 50 mg/dL LDL Cholesterol Calculation 112(H) 0 - 99 mg/dL 05/08/2024 12:58 PM [facility] Non HDL Cholesterol Calculation 133.0(H) See comment mg/dL 05/08/2024 12:58 PM [facility] Comment: Fasting and Non-Fasting Desirable: <130 mg/dL Above desirable: 130-159 mg/dL Borderline high: 160-189 mg/dL High: 190-219 mg/dL Very high: > or = 220 mg/dL Blood VENOUS STRUCTURE / Unknown Venipuncture / Unknown 05/07/2024 12:57 PM EST 05/07/2024 12:59 PM EST [facility] - 05/08/2024 12:58 PM EST The National Lipid Association and the National Cholesterol Education Program (NCEP) have set the above guidelines for lipids (total cholesterol, triglycerides, HDL cholesterol, LDL cholesterol, and non HDL cholesterol) in adults ages 18 and up. us Kendal Rogel PMHNP CHEMISTRY ORDERABLES Kylie zuñiga Result [facility] [address] [place] [address] * VITAMIN D 25-HYDROXY TOTAL (DEFICIENCY SCREENING ASSAY) (05/07/2024 12:57 PM EST) Vitamin D 25-Hydroxy 31.5 25.0 - 50.0 ng/mL 05/08/2024 12:34 PM [facility] Comment: <13 ng/mL (deficient) 13-24 ng/mL (inadequate) 25-50 ng/mL (sufficient) >50 ng/mL (possibly harmful level - this is a suggested range according to the IOM/CDC 2011 guidelines, please interpret within the clinical context) Blood VENOUS STRUCTURE / Unknown Venipuncture / Unknown 05/07/2024 12:57 PM EST 05/07/2024 12:59 PM EST Kendal Rogel PMHNP CHEMISTRY ORDERABLES Kylie l Result Performing Organization Address City/[facility]/ZIP Co de Phone Number [place] [address] [place] [address] * (ABNORMAL) VITAMIN B12 + FOLATE LEVELS (05/07/2024 12:57 PM EST) Vitamin B12 Level 214(L) 232 - 1,245 pg/mL 05/08/2024 12:34 PM EST [facility] Folate Level 9.2 4.8 - 20.0 ng/mL 05/08/2024 12:34 PM EST [facility] Blood VENOUS STRUCTURE / Unknown Venipuncture / Unknown 05/07/2024 12:57 PM EST 05/07/2024 12:59 PM EST Result [facility] Kendal Rogel PMHNP CHEMISTRY ORDERABLES Kylie l Result Performing Organization Address City/[facility]/ZIP Co de Phone Number [place] [address] [place] [address] * MAGNESIUM (05/07/2024 12:57 PM EST) Pathologist [facility] Magnesium 2.5 1.6 - 2.6 mg/dL 05/08/2024 12:58 PM EST [facility] Blood VENOUS STRUCTURE / Unknown Venipuncture / Unknown 05/07/2024 12:57 PM EST 05/07/2024 12:59 PM EST Kendal Rogel PMHNP CHEMISTRY ORDERABLES Kylie l Result Performing Organization Address City/[facility]/ZIP Co de Phone Number [place] [address] [place] [address] * FERRITIN (05/07/2024 12:57 PM EST) Ferritin 92.3 13.0 - 150.0 ng/mL 05/08/2024 12:34 PM EST [facility] Blood VENOUS STRUCTURE / Unknown Venipuncture / Unknown 05/07/2024 12:57 PM EST 05/07/2024 12:59 PM EST Kendal Rogel PMHNP CHEMISTRY ORDERABLES Kylie l Result Performing Organization Address City/[facility]/ZIP Co de Phone Number [facility] [address] [place] [address] * HEMOGLOBIN A1C (05/07/2024 12:56 PM EST) Hemoglobin A1C 5.3 4.2 - 5.6 % 05/08/2024 4:47 AM EST [facility] Average Plasma Glucose 105 82 - 117 mg/dL 05/08/2024 4:47 AM EST [facility] Blood VENOUS STRUCTURE / Unknown Venipuncture / Unknown 05/07/2024 12:56 PM EST 05/07/2024 12:59 PM EST Narrative [facility] - 05/08/2024 4:47 AM EST <18 years: [...] ORDERABLES Kylie l Result Performing Organization Address City/[facility]/ZIP Co de Phone Number [facility] [address] [place] [address] * VITAMIN B2 LEVEL (05/07/2024 12:56 PM EST) Vitamin B2 Level 8.4 6.2 - 39.0 nmol/L 05/18/2024 7:36 PM EST [facility] Comment: Vitamin supplementation within 24 hours prior to blood draw may affect the accuracy of results. This test was developed and its analytical performance characteristics have been determined by [facility] [place], [place]. It has not been cleared or approved by the FDA. This assay has been validated pursuant to the CLIA regulations and is used for clinical purposes. Test Performed at: [facility] [address] [facility] [place] [address] Dale Lopez MD, PhD Blood VENOUS STRUCTURE / Unknown Venipuncture / Unknown 05/07/2024 12:56 PM EST 05/07/2024 12:59 PM EST us Kendal Rogel PMHNP CHEMISTRY ORDERABLES Kylie l Result [facility] [address] * PHOSPHORUS (05/07/2024 12:56 PM EST) [facility] Phosphorus 3.0 2.5 - 4.5 mg/dL 05/08/2024 11:50 AM EST [facility] Blood VENOUS STRUCTURE / Unknown Venipuncture / Unknown 05/07/2024 12:56 PM EST 05/07/2024 12:59 PM EST us Kendal Rogel PMHNP CHEMISTRY ORDERABLES Kylie l Result Performing Organization Address City/[facility]/ZIP Co de Phone Number [facility] [address] [place] [address] documented in this encounter Visit Diagnoses Diagnosis Anorexia nervosa, binge eating/purging type- Primary Anorexia nervosa documented in this encounter Additional Health Concerns Assessment Noted Time A fall risk assessment has been complete d for the patient 05/18/2022 3:41 PM EST documented as of this encounter Care Teams Grain Scooper Relationship Specialty Start Date End Date Ofe Weathers PAC [address] [place] [phone] PCP - General Physician Glue Jointer Operator 03/10/21 Ofe Weathers PAC [address] [place] [phone] Physician Glue Jointer Operator Physician Glue Jointer Operator 09/17/18 Kendal Rogel, PMHNP [address] [place] [address] Consulting Service Psychiatry 10/29/18 documented as of this encounter
--- OUTSIDE RECORDS SUMMARY | 2025-04-04 16:36 | XMS_ITS | Encounter Summary ---
Author Organization [facility] Address [address] [place], [place] [address] Care Team Providers Care Sanding Machine Operator Name Role Phone Ofe Weathers PAC Unavailable [phone] Kendal Rogel PMHNP Unavailable [phone] Ofe Weathers Primary Care Provider [phone] Encounter Details Date Type Department Care Team (Late st Contact Info) Description 12/22/2024 Results Follow-Up [facility] Primary Care Family Medicine [address] [facility] [address] [place] [address] Petrophysicist: Susana Cordero Calli A, PAC [address] [place] [address] TSH REFLEX THYROXINE FREE, FERRITIN, [...] documented as of this encounter Care Teams Sanding Machine Operator Relationship Specialty Start Date End Date Ofe Weathers PAC [address] [place] [phone] PCP - General Physician Supervising Fire Marshal 03/10/21 Ofe Weathers PAC [address] [place] [address] Physician Supervising Fire Marshal Physician Supervising Fire Marshal 09/17/18 [facility] [address] [place] [address] Consulting Service Psychiatry 10/29/18 documented as of this encounter
--- OUTSIDE RECORDS SUMMARY | 2025-04-04 16:36 | XMS_ITS | Clinical Summary ---
Author Organization [facility] Address [address] [place] [address] Care Team Providers Care Nurses Assistant Name Role Phone Ofe Weathers PAC Unavailable [phone] Kendal Rogel PMHNP Unavailable [phone] fOe Weathers PAC Primary Care Provider [phone] Allergies Active Allergy Reactions Criticality Noted Date [...] than the Lexapro. Plan to call her grain manager and discuss going back on Lexapro. Encouraged [...] injection. If bleeding continues, recommend follow-up with CANE WEIGHER HELPER to discuss options. Assessment & Plan (05/11/2021 [...] Department Care Team Description 02/02/2025 Results Follow-Up [facility] Primary Care Family Medicine [address] [phone] A&P Mechanic: Susana Cordero Tracy, APRN, [employer] SICKLE CELL SCREEN 01/30/2025 Travel from Last 3 Months Immunizations Immunization Administration Dates Next Due DTaP Vaccine 05/28/2008, 5,2004,08/09,2004 HPV Vaccine 9-valent Confidential 12/17/2017,05/2016 Hepatitis A Vaccine 0.5 ml 06/27/2010,12/01/2008 Hepatitis B Vaccine 2004,2004,2003 HiB Vaccine 07/18/2005,2004,2004 Influenza Vaccine 05/03/2021,,04/01/2018,04/02 Influenza Vaccine Quadrivale nt 0.5mL IM PF Age 6M+ ([id number]) 06/07/2022,07/23/2019,04/01/2018 MMR Vaccine 05/28/2018,04/12/2005 Meningococcal MCV4P Vaccine 01/03/2021 Meningococcal MPSV4 Vaccine 12/21/2015 Reverbeo Purple Cap(12+) Covid-19,mrna,lnp-s,pf,0.3ml ([id number]) 06/10/2021,10/21/2020,09/28/2020 Poliovirus Vaccine Inactivated (IPV) ,2004,2004,06/22 Tdap [...] Cell Screen NEGATIVE 01/31/2025 5:11 PM EDT [facility] BLOOD [facility] Comment: False negatives may be seen in anemia, infants and following red cell transfusions. Blood VENOUS STRUCTURE / Unknown Venipuncture / Unknown 01/30/2025 5:37 PM EDT 01/30/2025 5:40 PM EDT us Denisha Abdi M48/M60 TANK DRIVER, [employer] BLOOD BANK ORDERABLES F inal Result [facility] BLOOD BANK [address] [place] [address] from Last 3 Months Insurance [employer] Care Teams Nurses Assistant Relationship Specialty Start Date End Date Ofe Weathers, PAC [address] [place] [phone] PCP - General Physician Nut Chopper 03/10/21 Ofe Weathers, PAC [address] [place] [phone] Physician Nut Chopper Physician Nut Chopper 09/17/18 Kendal Rogel, PMHNP [address] [place] [address] [phone] Consulting Service Psychiatry 10/29/18
--- OUTSIDE RECORDS SUMMARY | 2025-04-04 16:36 | XMS_ITS | Encounter Summary ---
Author Organization [facility] Address [address] [place] [address] Care Team Providers Care Fitness Worker Name Role Phone Ofe Weathers PAC Unavailable [phone] Kendal Rogel PMHNP Unavailable [phone] Shyanne Weathersi A PAC Primary Care Provider [phone] Encounter Details Date Type Department Care Team (Late st Contact Info) Description 02/02/2025 Results Follow-Up [facility] Primary Care Family Medicine [address] [phone] Fabricator Special Items: Susana Cordero Tracy, APRN, FINANCIAL AID OFFICER-C [address] [place] [phone] SICKLE CELL SCREEN Social History Tobacco Use [...] documented as of this encounter Care Teams Fitness Worker Relationship Specialty Start Date End Date Ofe Weathers PAC [address] [place] [address] PCP - General Physician Machine Deburrer 03/10/21 Ofe Weathers PAC [address] [place] [address] Physician Machine Deburrer Physician Machine Deburrer 09/17/18 Kendal Rogel, [facility] [address] [place] [phone] Consulting Service Psychiatry 10/29/18 documented as of this encounter
--- OUTSIDE RECORDS SUMMARY | 2025-04-04 16:36 | XMS_ITS | Encounter Summary ---
Author Organization [employer] Address [address] [address] Care Team Providers Care Pulmonary Care Nurse Name Role Phone Unavailable Primary Care Provider Unavailabl e Encounter Details Date Type Department Care Team (Late st Contact Info) Description 03/02/2025 Care Coord Documentation [facility] DIS [facility] [address] [place] [phone] Sonya Pereyra MA Social History Tobacco Use [...] Pereyra MA - 03/02/2025 3:57 PM CDT [facility] Initial Assessment Summary Recommended Level of Care: Outpatient (OP) - [facility] and [facility], Medical consultation. MDNafisaP recommended however patient would like to hold off on scheduling. *Please call to schedule. Diagnosis: OSFED Growth Charts: None Verbal Disclosure signed: No Outside Care Team: None provided at [place] Insurance Info Insurance Benefit Sheet reviewed for non-coverage form needs? Yes Medicare Insurance: No Secondary Insurance: No Medicare Replacement Insurance: No Secondary Insurance: No Flowsheets Completed: Yes Sonya Pereyra MA * Ashley Munoz - 03/02/2025 3:57 PM CDT Subjective: Patient ID: Lauramariza Corrales is a 19 y.o. female. Chief Complaint: [facility] Post Initial Assessment Outpatient Scheduling Scheduled Providers (Name and Frequency): Vinita Heredia MD 1 visit Augusta diez 1 visit Christiane marie 1 visit Care Team Updated in [facility] (Yes or No): Yes Post [place] Paperwork (Sent via [way info sent] or Need to be Mailed): please mail Review of Systems Objective: Physical Exam Assessment: No diagnosis found. Plan: NA documented in this encounter Plan of Treatment Upcoming Encounters Date Type Department Care Team (Late st Contact Info) Description 04/09/2025 2:00 PM CDT Telemedicine [facility] [address] [place] [address] Augusta Diez MSW, [address] [address] 04/10/2025 8:00 AM CDT Telemedicine [facility] [address] [place] [address] Marissa Salas RDN, LD [address] [facility] [address] [place] [address] 04/21/2025 8:00 AM SMART ENERGY SPECIALIST Telemedicine [facility] [address] [facility] [address] [place] [address] Augusta Diez MSW, [address] [address] 04/23/2025 3:00 PM SMART ENERGY SPECIALIST Appointment [facility] [address] [address] Vinita Heredia MD [address] [facility] [address] [place] [address] 04/30/2025 1:00 PM SMART ENERGY SPECIALIST Telemedicine [facility] [address] [place] [address] Augusta Diez, INDUSTRIAL REHABILITATION CONSULTANT, [facility] [address] [facility] [address] [place], [place] [phone] documented as of this encounter Visit Diagnoses Not on filedocumented in this encounter
--- OUTSIDE RECORDS SUMMARY | 2025-04-04 16:36 | XMS_ITS | Encounter Summary ---
Author Organization [facility] Address [address] [place] [address] Care Team Providers Care Sheet Rock Installer Name Role Phone Jennie Magallanes DO Unavailable [phone] Michelle Yates DO Primary Care Provider [phone] Provider, Unknown Primary Care Provider Unavaila ble Laura Aparicio MD Primary Care Provider Unavail able Ofe Weathers PAC Unavailable [phone] Kendal Rogel PMHNP Unavailable [phone] Ofe Weathers A PAC Primary Care Provider [phone] Encounter Details Date Type Department Care Team (Late st Contact Info) Description 08/29/2011 Hospital Visit [facility] OUTPATIENT Deepali Randall DO [address] [place] [address] Jennie Magallanes DO [address] [place] [address] Social History Tobacco Use Types Packs/Day Years [...] on filedocumented in this encounter Care Teams Sheet Rock Installer Relationship Specialty Start Date End Date Jennie Magallanes DO [address] [place] [address] [address] [place] [address] PCP - Hospital (change to care team) 09/01/11 03/09/21 Michelle Yates DO [address] [place] [phone] PCP - General 07/15/14 01/09/16 Provider, Unknown PCP - General 01/10/16 09/16/18 Laura Aparicio MD PCP - General Family Medicine 09/17/18 03/09/21 Ofe Weathers PAC [address] [place] [phone] PCP - General Physician Manager Emergency 03/10/21 Ofe Weathers, [facility] [address] [place] [phone] Physician Manager Emergency Physician Manager Emergency 09/17/18 Kendal Rogel, PMP [address] [place] [phone] Consulting Service Psychiatry 10/29/18 documented as of this encounter
[2025-04-04 16:47] VITALS: BP 109/64; PULSE 96; RESP 16; TEMP 37.8; O2SAT 97; BMI 22.0
--- NOTE | 2025-04-04 16:47 | ED.GENADULT ---
HPI - General Adult General Date Seen: 04/04/25 Chief complaint: Nausea/Vomiting Stated complaint: Exhaustion, Vomiting Time Seen by Provider: 04/04/25 16:47 History of Present Illness HPI narrative: 19-year-old female presenting to the ER today with, nausea vomiting, diarrhea Was seen in the ER yesterday evening. Per that note she has a history of some restrictive eating disorder and has recently been trying to increase oral intake. Also has a history of constipation. She had mild diffuse tenderness on exam. She had been in urgent care in February with about 10 days of right-sided abdominal pain. During that visit had a normal CBC. In the ER last night workup showed normal sodium 137, potassium 4.3, chloride 97, bicarb 25, BUN 18, creatinine 0.8, glucose 130, magnesium 1.7, total bilirubin 0.5, AST 36, ALT 23, alk-phos 77, lipase 43. Treated with Zofran, Pepcid, bolus of IV fluids. History is obtained from the patient and from her 2 friends who accompany her. She has been noting some abdominal pain for the past couple of months since the start of the fall when she started at [employer]. It sounds like it has been coming and going. I am not able to get a clear pattern of whether not it is postprandial. Sounds like it is more less generalized but lately has been more on the right side, perhaps if anything more in the right upper quadrant than in the right lower quadrant. Yesterday she started with symptoms of vomiting and had several episodes of nonbilious nonbloody vomiting. Also a small amount of diarrhea. She was seen in the ER last night. She was able to discharge home but today the notes ongoing vomiting. She has been trying hard to stay hydrated and has had about a liter of water to drink. She has also developed frequent episodes of diarrhea, about once every hour with brown watery diarrhea. No bloody or mucousy stools. She does not have a high fever but she does have a low-grade fever. Her abdominal pain is persisting and perhaps a little bit worse today than yesterday. She has no recent travel. No known sick exposures. No known specific suspicious food intake. Superimposed on her GI symptoms she also has significant mental health stress, anxiety, depression. She does endorse anxiety and depression for the past several years, at least since high school. She notes that last year when she went away to her freshman year at college (a [employer]) she had development of a restrictive eating disorder and worsening of her depression and anxiety. She notes that her symptoms got worse because of the stress of being awake collagen also because her parents were and possibly going through a divorce. She moved here to [place] to go to [employer] this year. She chose seen all of because her sister is a college student at [employer] here in town. She feels like being closer to her sister is a helpful thing for her. She sees extra about once a week and her sister supportive. She did enter into treatment through the [facility], in [place], this fall when she moved to [place]. She says that she still struggling with her eating disorder and has not been gaining weight. She endorses a lot of stress in her life. She has a dorm room with 2 other roommates and her other 2 roommates 10 to have a erratic sleeping schedules and off and keep her awake until 3:00 a.m.. This week and is particularly stressful because [facility] actually have 3 gas so there is a total of 6 people sleeping her dorm this weekend. She is able to go to work classes and only missed 1 day of class work. She is getting good grades. However because of her stress and anxiety, she has been still restricting what she eats. 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 She loves to ski and finds it to be therapeutic. It is stressful for her that she can participate in the fall training program. I noticed that her her hands are dry and cracked. When I asked she does admit that she does a lot of hand washing and that is why her hands are dry. It does not sound like she has been diagnosed obsessive-compulsive disorder. She does have depression and is struggling with her mental health. She has no thoughts of suicide or self-harm. She says that she has been thinking about taking a break from school to attend to her eating disorder, possibly with an inpatient stay at [facility]. She says she might do that over the J term break. She also has a lot of anxiety centered around her chronic health problems. Her abdominal pain makes her anxious and she is worried that there is something wrong. Related Data Home Medications ?Medication ?Instructions ?Recorded ?Confirmed No Known Home Medications 03/05/25 04/04/25 Allergies Allergy/AdvReac Type Severity Reaction Status Date / Time Penicillins Allergy Intermediate Hives Verified 04/04/25 17:45 [facility] Social History Smoking Status: Never smoker Do you use any of these nicotine containing products: None How often do you have a drink containing alcohol: monthly or less How many standard drinks containing alcohol do you have on a typical day: 1 or 2 How often do you have six or more drinks on one occasion: Never AUDIT-C Alcohol total score: 1 Non-prescribed substance use: denies use service: No Exam Narrative: Exam Narrative: Constitutional: Appears well-developed and well-nourished. Alert. Conversant, but at times tearful. Her friends are attentively at her side. Non toxic. HENT: Head: Atraumatic. Nose: Nose normal. Mouth/Throat: Oral mucosa is clear and not desiccated or cracked. no trismus. Pharynx normal. Tonsils symmetric. No tonsillar enlargement, erythema, or exudate. Eyes: Conjunctivae normal. EOM normal. Pupils equal, round, and reactive to light. No scleral icterus. Neck: Normal range of motion. Neck supple. No tracheal deviation present. No JVD Cardiovascular: Normal rate, regular rhythm. No gallop. No friction rub. No murmur heard. Symmetric radial artery pulses Pulmonary/Chest: Effort normal. No stridor. No respiratory distress. No wheezes. No rales. No rhonchi . No tenderness. Abdominal: Soft. Bowel sounds normal. No distension. No mass. Right mid and right upper quadrant tenderness. No Galvan sign. No rebound. No guarding. No CVA tenderness. Musculoskeletal: RUE: Normal range of motion. No tenderness. No deformity LUE: Normal range of motion. No tenderness. No deformity RLE: Normal range of motion. No edema. No tenderness. No deformity LLE: Normal range of motion. No edema. No tenderness. No deformity Neurological: Alert and oriented to person, place, and time. Normal strength. CN II-VII intact. No sensory deficit. GCS eye subscore is 4. GCS verbal subscore is 5. GCS motor subscore is 6. Normal coordination Skin: Skin is warm and dry. No rash noted. No pallor. Normal capillary refill. Psychiatric: Initially were flat, poor eye contact. During our conversation she becomes much more open an animated. At times when discussing her life stressor she is quite tearful but is consolable by her friends. Endorses lot of depression, stress, anxiety about her health. Worried about her parents relationship. She is stressed about her course work. She has been seeing a therapist through [facility] and has transitioned to a therapist at [employer]. She is not currently on meds. She is considering going to inpatient eating disorder treatment. She is not suicidal. No hallucinations. Patient and friends confirm no substance abuse. Const: Vital Signs, click to edit/add: Vital Signs - 24 hr 04/04/25 16:47 04/04/25 19:45 Temperature 100.1 F H 99.7 F H Pulse Rate [Pulse Oximeter] 96 98 Respiratory Rate 16 20 Blood Pressure [Ri ght Upper Arm] 109/64 117/73 Pulse Oximetry 97 98 Oxygen Delivery Me thod Room Air Room Air Course Course ED Course: Recheck-patient is brought to the bathroom. Reports 2 more episodes of watery brown diarrhea since arrival. Nausea improved both resting bed but still nauseous when walking around. Reglan ordered in addition to Zofran that she has already received Recheck-patient says nausea is improved after Reglan but now feeling sleepy because of the Benadryl 12.5 mg administered to prevent akathisia. Recheck-has tolerated some sips of potassium. Reevaluation(s) Reevaluation #1: Recheck-still nauseous. Unable to tolerate oral potassium more than about 1 hours. Had another bout of diarrhea. No little bit shivery. Spiking low-grade fever. She still feeling weak. At this point she seems to be failing our attempts to control her nausea and diarrhea. She still too weak to go home. Given the social circumstances, she lives in communal dorm room, she is really not able to care for herself in her home living situation. Discussed with the patient. She agrees that observation in the hospital overnight for IV hydration, potassium repletion and further workup is indicated. Discussed with the patient that, although she has an adult and can make her own medical decisions, it would be appropriate for us to call her parents to notify them of her admission. I offered to speak to her parents myself. She does not want call him right now but will call them in a few minutes. She says she might also call her sister, who is a student at [employer]. Discussed with hospitalist, Lissett Lawton who graciously agrees to admit the patient. Vital Signs Vital signs: Initial Vital Signs Temperature 100.1 F H 04/04/25 16:47 Temperature Source Temporal Artery Scan 04/04/25 16:47 Pulse Rate 96 04/04/25 16:47 Respiratory Rate 16 04/04/25 16:47 Blood Pressure 109/64 04/04/25 16:47 Blood Pressure Mean 79 04/04/25 16:47 Blood Pressure Position Sitting 04/04/25 16:47 Pulse Oximetry 97 04/04/25 16:47 Oxygen Delivery Method Room Air 04/04/25 16:47 Vital Signs Temperature 100.1 F H 04/04/25 16:47 Pulse Rate 96 04/04/25 16:47 Respiratory Rate 16 04/04/25 16:47 Blood Pressure 109/64 04/04/25 16:47 Pulse Oximetry 97 04/04/25 16:47 Oxygen Delivery Method Room Air 04/04/25 16:47 Temperature 99.7 F H 04/04/25 19:45 Pulse Rate 98 04/04/25 19:45 Respiratory Rate 20 04/04/25 19:45 Blood Pressure 117/73 04/04/25 19:45 Pulse Oximetry 98 04/04/25 19:45 Oxygen Delivery Method Room Air 04/04/25 19:45 Medications Administered Medications: Generic Name Dose Route Start Last Admin Trade Name Freq PRN Reason Stop Dose Admin Loperamide HCl 4 mg 04/04/25 17:30 04/04/25 17:56 Loperamide Hcl 2 Mg Capsule PO 4 mg ONCE PRN Administration Discontinued Medications Generic Name Dose Route Start Last Admin Trade Name Freq PRN Reason Stop Dose Admin Sodium Chloride 1,000 mls @ 1,000 mls/hr 04/04/25 17:30 04/04/25 18:58 0.9 % Sodium Chloride 1000 Ml IV 04/04/25 18:29 Infused .Q1H ZOHRA Infusion Diphenhydramine HCl 12.5 mg/ 100.25 mls @ 300.75 mls/hr 04/04/25 18:33 04/04/25 19:24 Sodium Chloride IVPB 04/04/25 18:34 Infused ONCE ONE Infusion Metoclopramide HCl 10 mg 04/04/25 18:33 04/04/25 18:57 Metoclopramide Hcl 5 Mg/Ml Inj IVP 04/04/25 18:34 10 mg ONCE ONE Administration Ondansetron HCl 4 mg 04/04/25 17:30 04/04/25 17:56 Ondansetron 2 Mg/Ml Inj IVP 04/04/25 17:31 4 mg ONCE ONE Administration Potassium Bicarbonate 50 meq 04/04/25 18:22 04/04/25 19:46 Potassium Bicarb 25 Meq Effervescent Tab PO 04/04/25 18:23 Not Given ONCE ONE Medical Decision Making MDM Narrative Medical decision making narrative: 19-year-old complex presentation. She returns to the ER today after having been seen last night She does reports several weeks of abdominal pain beginning during the fall this year at [employer]. This is superimposed on a history of anxiety depression and eating disorder for which she underwent treatment at the [facility] this fall as well. Her chronic abdominal pain has worsened and she developed nausea and diarrhea beginning last night and through the day today. Also has a low-grade fever of 100.1 today. Differential for her abdominal pain is broad. It includes early Appendicitis, Bowel Obstruction, Ulcer, Cholecystitis, Diverticulitis, Pancreatitis, UTI, kidney stone, Enteritis/Colitis, inflammatory bowel disease, ischemia, irritable bowel syndrome, as well as other etiologies. Laboratory testing does not reveal a cause for the patient's pain. Because of recurrent worsening symptoms we did go ahead with CT imaging and it is Imaging is noted to be normal save for nonspecifically dilated loops of bowel with fluid (which can be seen in the setting of gastroenteritis). At this point the precise cause of her chronic abdominal pain is not clear. I suspect that her current symptoms are probably being driven largely by a GI infection, most likely viral but I will order stool C diff and stool bacterial panel as well. Suspect that her vomiting diarrhea or probably infectious in nature. She does not have a high fever, bloody mucousy stool, travel, severe abdominal pain , or other clear risk factors for bacterial enteritis. We did recheck labs and electrolytes and we do see interval development of hypokalemia and mildly worse hyponatremia compared to yesterday. I suspect this is due to GI losses from vomiting and diarrhea. Kidney function normal. LFTs normal. Lipase normal. Blood sugar normal. Hypokalemia present. I ordered oral supplementation here in the ER but she is failing. She is just not able to keep enough fluids down to drink her potassium. Given this will start her on IV potassium chloride. She required admission for potassium repletion and hydration. She also is endorsing some ongoing trouble with anxiety and depression, eating disorder. She is not acutely decompensated from a psychiatric standpoint. I do see that her hands are quite dry and cracked from excessive washing which could suggest OCT is well. At this point she is not suicidal. She is clearly alert and intelligent conversant. She has supportive friends at her side. At this point she does not meet criteria for inpatient mental hospitalization. She has been working with counselors at the [facility] as well as at [facility] and I encouraged her to follow up for counseling. At this point she is not meeting criteria for inpatient mental health admission. She will require medical admission for hydration, electrolyte repletion, further management. Please see hospitalist notes for further details about admission status and further workup. Lab Data Labs: Lab Results 04/04/25 Range/Units 17:35 WBC 5.43 (4.50-11.00) K/uL RBC 5.09 (4.00-5.20) m/uL Hgb 13.5 (12.0-16.0) gm/dL Hct 40.7 (33.0-51.0) % MCV 80 (80-100) fL MCH 27 (26-34) pg MCHC 33 (32-36) gm/dL RDW Coeff of Luzma 13.1 (11.5-15.5) % Plt Count 154 (140-440) K/uL Neut % (Auto) 82.2 H (42.0-72.0) % Lymph % (Auto) 7.4 L (20-44) % [place] % (Auto) 9.8 (0.0-11.0) % Eos % (Auto) 0.2 (0.0-7.0) % Baso % (Auto) 0.2 (0.0-3.0) % Neut # (Auto) 4.50 (1.7-7.0) K/uL Lymph # (Auto) 0.40 L (0.90-2.90) K/uL [place] # (Auto) 0.50 (0.00-0.90) K/UL Eos # (Auto) 0.01 (0.00-0.50) K/uL Baso # (Auto) 0.01 (0.00-0.30) K/uL Abs Immat Gran (auto) 0.01 (0.00-0.30) K/uL Imm/Tot Granulo (auto) 0.2 % Sodium 134 L (135-149) mmol/L Potassium 3.1 L (3.6-5.1) mmol/L Chloride 101 (96-114) mmol/L Carbon Dioxide 21 (20-32) mmol/L Anion Gap 12 (7-15) mEq/L BUN 17 (5-24) mg/dL Creatinine 0.7 (0.5-1.5) mg/dL Estimated Creat Clear 147.94 Estimated GFR 127 ml/min Glucose 103 (60-115) mg/dL Calcium 9.1 (8.4-10.6) mg/dL Magnesium 1.7 (1.5-2.6) mg/dL Total Bilirubin 0.8 (0.1-1.5) mg/dL AST 29 (12-35) U/L ALT 21 (4-35) U/L Alkaline Phosphatase 52 (40-150) U/L Total Protein 6.9 (6.0-8.3) g/dL Albumin 4.2 (3.3-5.0) g/dL Lipase 30 (23-300) U/L Imaging Data CT scan - abdomen: Attestation: I have reviewed the pertinent imaging results. Radiologist's impression: Impression: Mild distention of small and bowel loops throughout the abdomen without transition point. Discharge Plan Discharge Clinical Impression: Nausea vomiting and diarrhea, Dehydration, Acute hypokalemia, Weakness Patient Disposition: Admitted As Observation
--- NOTE | 2025-04-04 17:30 | CRLHL7_ITS ---
For Patients: As a result of the Century Cures Act, medical imaging exams and procedure reports are released immediately into your electronic medical record. You may view this report before your referring provider. If you have questions, please contact your health care provider. Indication: abd pain, vomiting, diarrhea Technique: CT Abdomen/Pelvis W/ 58CC ISOVUE 370 intravenous contrast Please note that all CT scans at this facility use dose modulation, iterative reconstruction, and/or weight-based dosing when appropriate to reduce radiation dose to as low as reasonably achievable. Comparison: None Findings: Lung bases are clear. Normal liver, gallbladder, spleen, pancreas, adrenal glands, kidneys, bladder, uterus and ovaries. Mildly prominent fluid-filled loops of small bowel and large bowel are present throughout the abdomen without transition point or wall thickening. No evidence of appendicitis. No abdominal wall hernia. No free air, free fluid or abscess. Osseous structures are normal for age. Impression: Mild distention of small and bowel loops throughout the abdomen without transition point. Please note that all CT scans at this facility use dose modulation, iterative reconstruction, and/or weight-based dosing when appropriate to reduce radiation dose to as low as reasonably achievable. Dictated by Cruz Mcelroy MD @ 04/04/2025 6:17:24 PM (Electronically Signed)
[2025-04-04 17:49] LABS: Hematocrit* 40.7 % (33.0-51.0); Hemoglobin* 13.5 gm/dL (12.0-16.0); Immature Granulocytes Abs Auto 0.01 K/uL (0.00-0.30); Immature Granulocytes Pct Auto 0.2 %; Lymphocytes Absolute Auto 0.40 K/uL (0.90-2.90); Mean Corpuscular HGB Conc 33 gm/dL (32-36); Mean Corpuscular Hemoglobin 27 pg (26-34); Mean Corpuscular Volume 80 fL (80-100); RDW Coefficient of Variation % 13.1 % (11.5-15.5); Red Blood Count* 5.09 m/uL (4.00-5.20); White Blood Count* 5.43 K/uL (4.50-11.00)
[2025-04-04 17:53] LABS: Slide Review Reflex No
[2025-04-04] MEDS: ONDANSETRON 2 MG/ML inj 4 MG IVP (17:56)
[2025-04-04] MEDS: LOPERAMIDE HCL 2 MG CAPSULE 4 MG PO (17:56)
[2025-04-04 18:00] LABS: Chloride* 101 mmol/L (96-114)
[2025-04-04 18:01] LABS: Albumin* 4.2 g/dL (3.3-5.0); Potassium* 3.1 mmol/L (3.6-5.1); Sodium* 134 mmol/L (135-149)
[2025-04-04 18:04] LABS: Alanine Aminotransferase* 21 U/L (4-35); Alkaline Phosphatase* 52 U/L (40-150); Anion Gap 12 mEq/L (7-15); Aspartate Amino Transferase* 29 U/L (12-35); Bilirubin Total* 0.8 mg/dL (0.1-1.5); Blood Urea Nitrogen* 17 mg/dL (5-24); Calcium* 9.1 mg/dL (8.4-10.6); Carbon Dioxide* 21 mmol/L (20-32); Creatinine* 0.7 mg/dL (0.5-1.5); Est. Creatinine Clearance* 147.94; Estimated Glomerular Filt Rate 127 ml/min; Glucose* 103 mg/dL (60-115); Total Protein* 6.9 g/dL (6.0-8.3)
[2025-04-04] MEDS: diphenhydrAMINE 12.5 MG in 0.9 % SODIUM CHLORIDE 100 ml 100 ML 300.75 MG IVPB (18:56)
[2025-04-04] MEDS: METOCLOPRAMIDE HCL 5 MG/ML INJ 10 MG IVP (18:57)
[2025-04-04 19:45] VITALS: BP 117/73; PULSE 98; RESP 20; TEMP 37.6; O2SAT 98
[2025-04-04] MEDS: ACETAMINOPHEN 500 MG TABLET 1000 MG PO (20:01)
[2025-04-04] MEDS: PANTOPRAZOLE SODIUM 40 MG INJ IVP (20:02)
[2025-04-04] MEDS: POTASSIUM CHLORIDE 10 MEQ/100 ML PIGGYBACK 100 MEQ IVPB ×2 (20:17→21:32)
[2025-04-04 20:34] VITALS: BP 118/66; PULSE 93; RESP 18; TEMP 36.8; O2SAT 100; BMI 22.1
--- NOTE | 2025-04-04 20:47 | PM.IMHP1 ---
Assessment and Plan Assessment and plan (1) Nausea vomiting and diarrhea: Problem comment: -onset approximately 24 hours ago -continue IVF, anti-emetics as needed -GI pathogen panel, C diff pending Status: Acute (2) Acute hypokalemia: Problem comment: -potassium 3.1 -10 mEq IV bumps x4, recheck in a.m. Status: Acute (3) Fever: Problem comment: -mild, temp 100.1? -no leukocytosis -UA ordered, GI panel/C diff pending Status: Acute (4) Abdominal pain: Problem comment: -chronic, acutely worsened -CT without evidence of acute abnormalities Status: Acute Plan Continue IV rehydration, nausea management, potassium replacement. Likely discharge tomorrow. Total Time Spent Total Time Spent: Today I spent 75 minutes seeing the patient, reviewing Expanse and EPIC notes/diagnostics, discussing the care plan with our care time that includes social work, PT/OT, pharmacy, RT, mcfp and documenting my impressions and plan in the medical record. 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 Patient is seen with friend/classmate at bedside. Reports history of generalized abdominal pain on a daily basis, noticeably worsened yesterday morning. Began vomiting last night around 8:00 p.m.. Was seen in this ED shortly before midnight and discharged to home following IV fluid hydration along with Zofran. Has continued to have vomiting and diarrhea so return to the ED. tells me abdominal pain is slightly better now. Last stool was in the ED. described as loose and brown, no blood. Last vomited in the ED. No hematemesis. No fevers this week but was noted to have a temp of 100.1? in the ED. has a generalized headache and mild dizziness today. No chest pain or shortness of breath. No recent cough or cold symptoms. Denies UTI symptoms. No recent travel. No known exposures though is a current college student so the risks are there. No reported outbreaks. No known suspicious foods. No new medications. Nonsmoker, no vaping. Occasional alcohol use. Home is [place], [place]. Review of Systems Narrative: REVIEW OF SYSTEMS: Complete review of systems performed and negative unless otherwise stated in HPI or below. Medical Decision Making Medical Decision Making Code Status: Full code [facility] Medical History (Updated 04/04/25 @ 21:23 by Lissett Lawton PA-C) Eating disorder ?F50.9 - Eating disorder, unspecified (ICD-10) NITESH (generalized anxiety disorder) ?F41.1 - Generalized anxiety disorder (ICD-10) MDD (major depressive disorder) ?F32.9 - Major depressive disorder, single episode, unspecified (ICD-10) Abdominal pain ?R10.9 - Unspecified abdominal pain (ICD-10) Social History Smoking Status: Never smoker Do you use any of these nicotine containing products: None How often do you have a drink containing alcohol: monthly or less How many standard drinks containing alcohol do you have on a typical day: 1 or 2 How often do you have six or more drinks on one occasion: Never AUDIT-C Alcohol total score: 1 Non-prescribed substance use: denies use service: No Meds Home Medications and Allergies Home Medications ?Medication ?Instructions ?Recorded ?Confirmed ?Type No Known Home Medications 03/05/25 04/04/25 History Allergies Allergy/AdvReac Type Severity Reaction Status Date / Time Penicillins Allergy Intermediate Hives Verified 04/04/25 17:45 Exam Narrative: Exam Narrative: PHYSICAL EXAM General: Pleasant, appropriately conversant, appears fatigued otherwise NAD HEENT: Normocephalic, atraumatic, sclera white, EOMI, oral mucosa dry Cardiovascular: RRR, S1S2. No pitting edema Pulmonary: CTA bilaterally without rhonchi, rales, expiratory wheezes. No dyspnea on room air Abdominal: Soft, nondistended, mild generalized tenderness Neurological: Alert, answering questions appropriately, cranial nerves intact, no focal findings Extremities: No gross joint deformity or swelling. AROMI. Neurovascularly intact Skin: Warm, dry, chafing of hands. Const: Vital Signs, click to edit/add: Vital Signs - 24 hr 04/04/25 16:47 04/04/25 19:45 Temperature 100.1 F H 99.7 F H Pulse Rate [Pulse Oximeter] 96 98 Respiratory Rate 16 20 Blood Pressure [Ri ght Upper Arm] 109/64 117/73 Pulse Oximetry 97 98 Oxygen Delivery Me thod Room Air Room Air Hospitalist - H&P: Result Labs Labs: Short CBC 04/04/25 Range/Units 17:35 WBC 5.43 (4.50-11.00) K/uL Hgb 13.5 (12.0-16.0) gm/dL Hct 40.7 (33.0-51.0) % Plt Count 154 (140-440) K/uL BMP 04/04/25 17:35 Sodium 134 L Potassium 3.1 L Chloride 101 Carbon Dioxide 21 BUN 17 Creatinine 0.7 Glucose 103 Calcium 9.1 Liver Function 04/04/25 Range/Units 17:35 Total Bilirubin 0.8 (0.1-1.5) mg/dL AST 29 (12-35) U/L ALT 21 (4-35) U/L Alkaline Phosphatase 52 (40-150) U/L Albumin 4.2 (3.3-5.0) g/dL Imaging CT scan - abdomen: Attestation: I have reviewed the pertinent imaging results. Radiologist's impression: Lung bases are clear. Normal liver, gallbladder, spleen, pancreas, adrenal glands, kidneys, bladder, uterus and ovaries. Mildly prominent fluid-filled loops of small bowel and large bowel are present throughout the abdomen without transition point or wall thickening. No evidence of appendicitis. No abdominal wall hernia. No free air, free fluid or abscess. Osseous structures are normal for age. Impression: Mild distention of small and bowel loops throughout the abdomen without transition point.
[2025-04-04 20:55] VITALS: BP 118/66; PULSE 93; RESP 18; TEMP 36.8; O2SAT 100
[2025-04-04 23:00] VITALS: BP 112/69; PULSE 88; RESP 18; TEMP 37.2; O2SAT 100
[2025-04-04 23:00] LABS: Appearance Urine Clear (Clear)
[2025-04-05] MEDS: POTASSIUM CHLORIDE 10 MEQ/100 ML PIGGYBACK 100 MEQ IVPB ×3 (00:46→08:45)
[2025-04-05 02:28] VITALS: BP 102/54; PULSE 76; RESP 18; TEMP 36.8; O2SAT 98
--- NOTE | 2025-04-05 05:13 | PC.NURSE ---
Shift note: Pt arrived to the floor at 2034 on wheelchair accompanied by a friend from school. Patient is a student at [employer]. Admitted on account of N/V/D which started about 4 days ago. The last BM and vomiting was yesterday at ER. No BM since admitted. Stool sample for C.diff still pending collection. Generalized abdominal discomfort reported, rated at 3/10. No fever recorded. Patient had adequate sleep.
[2025-04-05 06:46] LABS: Hematocrit* 37.8 % (33.0-51.0); Hemoglobin* 12.1 gm/dL (12.0-16.0); Mean Corpuscular HGB Conc 32 gm/dL (32-36); Mean Corpuscular Hemoglobin 26 pg (26-34); Mean Corpuscular Volume 82 fL (80-100); Red Blood Count* 4.59 m/uL (4.00-5.20); White Blood Count* 4.09 K/uL (4.50-11.00)
[2025-04-05 06:49] LABS: Slide Review Reflex No
[2025-04-05 06:58] LABS: Chloride* 107 mmol/L (96-114)
[2025-04-05 06:59] LABS: Potassium* 3.5 mmol/L (3.6-5.1); Sodium* 136 mmol/L (135-149)
[2025-04-05 07:00] VITALS: BP 105/57; PULSE 82; RESP 18; TEMP 36.9; O2SAT 97
[2025-04-05 07:01] LABS: Blood Urea Nitrogen* 8 mg/dL (5-24); Creatinine* 0.7 mg/dL (0.5-1.5); Est. Creatinine Clearance* 147.94; Estimated Glomerular Filt Rate 127 ml/min
[2025-04-05 07:02] LABS: Anion Gap 3 mEq/L (7-15); Calcium* 8.2 mg/dL (8.4-10.6); Carbon Dioxide* 26 mmol/L (20-32); Glucose* 92 mg/dL (60-115)
[2025-04-05] MEDS: OMEPRAZOLE 20 MG CAPSULE DR PO (08:59)
--- NOTE | 2025-04-05 10:00 | P.DS_ITS ---
DS: Providers Provider Time Seen by Provider: 08:10 Date Seen: 04/05/25 Date of admission: 04/04/25 20:10 Primary care physician: Not a Local Provider Admitting Clinician: Melissa Moreno MD Attending Physician on discharge: Melva Wyatt MD Date of Discharge: 04/05/25 DS: Diagnosis Discharge Diagnosis (1) Nausea vomiting and diarrhea: Status: Acute Problem details: -onset approximately 24 hours ago -continue IVF, anti-emetics as needed -GI pathogen panel, C diff pending, patient has not had any stools here (2) Fever: Status: Acute Problem details: -mild, temp 100.1? -no leukocytosis -UA ordered, GI panel/C diff pending (3) Acute hypokalemia: Status: Acute Problem details: -potassium 3.1 -10 mEq IV bumps x4, recheck in a.m. 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 Patient is seen with friend/classmate at bedside. Reports history of generalized abdominal pain on a daily basis, noticeably worsened yesterday morning. Began vomiting last night around 8:00 p.m.. Was seen in this ED shortly before midnight and discharged to home following IV fluid hydration along with Zofran. Has continued to have vomiting and diarrhea so return to the ED. tells me abdominal pain is slightly better now. Last stool was in the ED. described as loose and brown, no blood. Last vomited in the ED. No hematemesis. No fevers this week but was noted to have a temp of 100.1? in the ED. has a generalized headache and mild dizziness today. No chest pain or shortness of breath. No recent cough or cold symptoms. Denies UTI symptoms. No recent travel. No known exposures though is a current college student so the risks are there. No reported outbreaks. No known suspicious foods. No new medications. Laura did well overnight with no further nausea or vomiting. She endorses persistent chronic abdominal pain with eating that is no worse than usual. She was able to tolerate a regular diet this morning, eating cook islander toast and apple sauce. We had a discussion about diet, obsessive thoughts, chronic abdominal pain, and stress. I encouraged her to follow up with student health to discuss chronic issues of chronic abdominal pain and obsessive thoughts and to reach out to [facility] to push up the appointment she has with them, that is currently in early-mid April. She also described constipation and difficulty having a bowel movement every day and use of MiraLax resolved this. She has never tried senna. I recommended trying a senna daily and saving MiraLax only for when it has been from days without a bowel movement. Additionally she may benefit from a trial of omeprazole which I have put on her home medication list and this can be obtained [id number]. Please see diagnoses above for further details. She is discharged home today in improved condition. Exam Narrative: Exam Narrative: General: No acute distress. Awake, alert, oriented. Avoided eye contact at 1st, depressed affect. No pallor. No jaundice. Oropharynx: Clear. Mucous membranes moist. Cardiovascular: Regular rate and rhythm. No murmurs, gallops, or rubs. Respiratory: Clear to auscultation bilaterally. No wheezes or crackles. Abdomen: Bowel sounds present. Soft, nondistended, nontender. Const: Vital Signs, click to edit/add: Vital Signs - 24 hr 04/04/25 16:47 04/04/25 19:45 04/04/25 20:34 Temperature 100.1 F H 99.7 F H 98.2 F Pulse Rate [Left P ulse Oximeter] 93 Pulse Rate [Pulse Oximeter] 96 98 Respiratory Rate 16 20 18 Blood Pressure [Le ft Arm] 118/66 Blood Pressure [Ri ght Upper Arm] 109/64 117/73 Pulse Oximetry 97 98 100 Oxygen Delivery Me thod Room Air Room Air Room Air 04/04/25 20:34 04/04/25 20:55 04/04/25 23:00 Temperature 98.2 F Pulse Rate [Left P ulse Oximeter] 93 Pulse Rate [Pulse Oximeter] Respiratory Rate 18 18 18 Blood Pressure [Le ft Arm] 118/66 Blood Pressure [Ri ght Upper Arm] Pulse Oximetry 100 100 Oxygen Delivery Me thod Room Air Room Air 04/04/25 23:00 04/05/25 02:28 Temperature 98.9 F 98.3 F Pulse Rate [Left P ulse Oximeter] 88 76 Pulse Rate [Pulse Oximeter] Respiratory Rate 18 18 Blood Pressure [Le ft Arm] 112/69 102/54 L Blood Pressure [Ri ght Upper Arm] Pulse Oximetry 100 98 Oxygen Delivery Me thod Room Air Room Air DS: Data Data Completed and Pending Completed studies during hospitalization: Ordering Physician: Perfecto Jerome M.D. Date of Service: 04/04/25 Procedure(s): CT abdomen pelvis w con Accession Number(s): [id number] cc: Perfecto Jerome M.D.; Provider,Not a Local~ For Patients: As a result of the Century Cures Act, medical imaging exams and procedure reports are released immediately into your electronic medical record. You may view this report before your referring provider. If you have questions, please contact your health care provider. Indication: abd pain, vomiting, diarrhea Technique: CT Abdomen/Pelvis W/ 58CC ISOVUE 370 intravenous contrast Please note that all CT scans at this facility use dose modulation, iterative reconstruction, and/or weight-based dosing when appropriate to reduce radiation dose to as low as reasonably achievable. Comparison: None Findings: Lung bases are clear. Normal liver, gallbladder, spleen, pancreas, adrenal glands, kidneys, bladder, uterus and ovaries. Mildly prominent fluid-filled loops of small bowel and large bowel are present throughout the abdomen without transition point or wall thickening. No evidence of appendicitis. No abdominal wall hernia. No free air, free fluid or abscess. Osseous structures are normal for age. Impression: Mild distention of small and bowel loops throughout the abdomen without transition point. Please note that all CT scans at this facility use dose modulation, iterative reconstruction, and/or weight-based dosing when appropriate to reduce radiation dose to as low as reasonably achievable. Dictated by Cruz Mcelroy MD @ 04/04/2025 6:17:24 PM (Electronically Signed) Labs on day of discharge: Labs from last 24 hours 04/05/25 04/04/25 04/04/25 06:27 22:50 17:35 WBC 4.09 L 5.43 RBC 4.59 5.09 Hgb 12.1 13.5 Hct 37.8 40.7 MCV 82 80 MCH 26 27 MCHC 32 33 RDW Coeff of Luzma 13.1 Plt Count 126 L 154 Neut % (Auto) 82.2 H Lymph % (Auto) 7.4 L [place] % (Auto) 9.8 Eos % (Auto) 0.2 Baso % (Auto) 0.2 Neut # (Auto) 4.50 Lymph # (Auto) 0.40 L [place] # (Auto) 0.50 Eos # (Auto) 0.01 Baso # (Auto) 0.01 Abs Immat Gran (auto) 0.01 Imm/Tot Granulo (auto) 0.2 Sodium 136 134 L Potassium 3.5 L 3.1 L Chloride 107 101 Carbon Dioxide 26 21 Anion Gap 3 L 12 BUN 8 17 Creatinine 0.7 0.7 Estimated Creat Clear 147.94 147.94 Estimated GFR 127 127 Glucose 92 103 Calcium 8.2 L 9.1 Magnesium 1.7 Total Bilirubin 0.8 AST 29 ALT 21 Alkaline Phosphatase 52 Total Protein 6.9 Albumin 4.2 Lipase 30 Urine Color Yellow Urine Appearance Clear Urine pH 6.5 Ur Specific [place] 1.010 Urine Protein Negative Urine Glucose (UA) Negative Urine Ketones Negative Urine Blood Negative Urine Nitrite Negative Urine Bilirubin Negative Urine Urobilinogen 0.2 Ur Leukocyte Esterase Negative Urine RBC 0-2 Urine WBC 0-2 Ur Squamous Epith Cells Few Urine Bacteria Few A Preliminary micro results at discharge 04/04/25 22:50 Urine Culture - Preliminary Urine,Clean Catch Culture in Progress Discharge Plan Discharge Disposition: Home, Self-Care Date of Admission: 04/04/25 20:10 Attending Provider on Discharge: Melva Wyatt Primary Care Provider: Provider,Not a Local Condition: Improved Anticipated Discharge Date/Time: 04/05/25 10:07 Discharge Medications: New sennosides [Senna Lax] 8.6 mg Tablet 8.6 mg PO HS Qty: 30 0RF omeprazole 20 mg Capsule,Delayed Release(Dr/Ec) 20 mg PO DAILY@0700 Qty: 14 0RF Discharge Orders: Discharge Order (Routine); Ordered 04/05/25 Ordered By: Melva Wyatt Additional Instructions: See student health on campus to discuss chronic stomach pain and obsessive thoug hts. Call Donna to move up appointment. Activity Level: No Restrictions Discharge Diet: Regular Follow Up Appointments: Provider,Not a Local [Primary Care Provider, Family Practice] Forms: MyHealth Info Instructions
[2025-04-05 12:03] LABS: C.Difficile Negative (Negative); CDIFFEPI 027 PRESUMPTIVE NEGATIVE (Negative)
--- NOTE | 2025-04-05 13:43 | PC.NURSE ---
Patient tolerated regular diet for breakfast. Tolerated without increased abdominal pain or nausea. Stool sample collected and pending. Discharge instructions given to patient. All questions were answered and forms were signed. IV removed. Escorted to front entrance.
[2025-04-08 04:21] LABS: Campylobacter PCR Not Detected; Enteroaggregative E coli PCR Not Detected; Enteropathogenic E coli PCR Not Detected; Enterotoxigenic E coli PCR Not Detected; Plesiomonas shig PCR Not Detected; Shiga toxin E coli PCR Not Detected
== END 2025-04-05 11:30 | disposition home or self-care (01) ==
LOC: ED 19:49 → MEDSURG 20:11
PROVIDERS: Physician Assistant; Admitting Provider Family Medicine; Emergency Provider Emergency Medicine; Visit Provider Family Medicine
DX: R11.2 Nausea with vomiting, unspecified (principal); R19.7 Diarrhea, unspecified; R50.9 Fever, unspecified; F41.9 Anxiety disorder, unspecified; F33.1 Major depressive disorder, recurrent, moderate; E87.6 Hypokalemia; E86.0 Dehydration
CPT/HCPCS: 36415; 74177; 80048; 80053; 81001; 83690; 83735; 85025; 85027; 87045; 87046; 87086; 87427; 87493; 87507; 96365; 96366; 96375; 99283; 99285; A9270; G0378; J1200; J2405; J2470; J2765; J3480; J7030; Q9967